=== PATIENT | male | born 1930 | race Caucasian/White ===

== ENCOUNTER 2017-03-14 19:40 | Inpatient (IN) ==
[2017-03-14] MEDS ORDERED: ONDANSETRON 4 MG/2 ML VIAL IV STA (20:00)
[2017-03-14] MEDS ORDERED: ASPIRIN 325 MG TABLET PO STA (20:00)
[2017-03-14] MEDS ORDERED: NITROGLYCERIN 2% OINT 1 INCH/GM PACK TOP STA (20:00)
[2017-03-14] MEDS ORDERED: METOPROLOL TARTRATE 25 MG TABLET PO STA (20:00)
[2017-03-14] MEDS ORDERED: MORPHINE 2 MG/1 ML SYRINGE IV STA (20:00)
[2017-03-14] MEDS ORDERED: METOPROLOL TARTRATE 5 MG/5 ML VIAL IV STA ×2 (20:07→20:23)
[2017-03-14] MEDS ORDERED: METOPROLOL TARTRATE 5 MG/5 ML VIAL IV ONE ×2 (20:07→20:22)
[2017-03-14] MEDS ORDERED: ONDANSETRON 4 MG/2 ML VIAL ONE (20:09)
[2017-03-14] MEDS ORDERED: MORPHINE 2 MG/1 ML SYRINGE ONE (20:09)
[2017-03-14] MEDS ORDERED: NITROGLYCERIN 2% OINT 1 INCH/GM PACK TOP ONE (20:10)
[2017-03-14 20:12] LABS: Basophils % 0.7 % (0.0-0.8); Eosinophils # 0.1 10*3/uL (0.0-0.87); Eosinophils % 1.5 % (0.00-10.9); Hematocrit 35.8 VOL% (42.0-52.0); Hemoglobin 11.7 GM/DL (14.0-18.0); Immature Granulocytes % 0.3 %; Immature Granulocytes Absolute 0.02 #; Lymphocytes # 0.8 10*3/uL (1.4-4.0); Lymphocytes % 13.1 % (21.2-54.2); Mean Corpuscular HGB Conc 32.7 GM/DL (32-36); Mean Corpuscular Hemoglobin 29 PG (27-34); Mean Corpuscular Volume 89.5 FL (87-102); Mean Platelet Volume 9.7 FL (9.6-12.0); Monocytes # 0.4 10*3/uL (0.11-0.8); Monocytes % 6.8 % (1.7-12.7); Neutrophils # 4.7 10*3/uL (1.4-7.4); Neutrophils % 77.6 % (38.7-73.9); Platelet Count 90 T/CUMM (130-400); Red Cell Distribution Width 15.2 % (9.3-17.3)
[2017-03-14 20:22] LABS: INR 1.1; PT Patient Result 11.5 SECS
--- NOTE | 2017-03-14 20:26 | XRay Report ---
Exam: XR chest 1V portable Date: 03/14/2017 8:00 PM Indication: Chest pain Comparison: 04/17/2016 Findings: Cardiomegaly with previous sternotomy. External cardiac leads and oxygen tubing are present. ASVD is present. Bibasilar atelectatic change present. No pneumothorax or effusions otherwise clearly demonstrated Impression: Cardiomegaly with previous sternotomy with bibasilar atelectatic change PROCEDURE INTERPRETED AT [facility] DEPARTMENT OF RADIOLOGY Final Report Signed by: Dr. Kevin Shaffer
--- NOTE | 2017-03-14 20:38 | Emergency Department Note ---
Eloina Watters Hilary, am scribing for, and in the presence of, Johnny Ramires MD 20:22. Keyla Watters Charles R, MD, personally performed the services described in this documentation, ascribed by Laney Duvall in my presence, and it is both accurate and complete . Arrival - Arrival Chief Complaint: Chest Pain Stated Complaint: chest pain ED Nursing Triage Note: C/O Chest pain that started yesterday- took a dose of nitro without relief. Chest pain started back at 1700 today- took a dose of nitro without any relief. 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 Yesterday when he had his chest pain he took a Nitro and it resolved his pain but today it did not. No other complaints or problems stated in the ED. Per Brennon pt has to be medically managed because he cannot have a heart cath, aspirin or blood thinners due to a bleeding risk Onset (ago): hour(s) Consistency: now resolved Severity: moderate Severity scale (1-10): 3 Allergies/Adverse Reactions: Allergies Allergy/AdvReac Type Severity Reaction Status Date / Time No Known Allergies Allergy Verified 08/30/16 13:10 Home Medications: Home Medications Medication Instructions Recorded Confirmed Type Amlodipine Besylate 2.5 mg PO BEDTIME 01/05/15 03/14/17 History Ferrous Sulfate [Ferrous Sulfate 325 mg PO DAILY 01/05/15 03/14/17 History Cap] Lisinopril 2.5 mg PO DAILY 04/17/16 03/14/17 History Memantine [Namenda] 10 mg PO BID W/MEALS 04/17/16 03/14/17 History Isosorbide Dinitrate [Isordil] 10 mg PO BID #60 tablet 04/19/16 03/14/17 Rx Nitroglycerin Sl Tab [Nitrostat] 0.4 mg SL Q5M PRN #25 tablet 04/19/16 03/14/17 Rx Propranolol Tab [Inderal Tab] 10 mg PO QID #120 tablet 04/19/16 03/14/17 Rx Acetaminophen Tab [Tylenol Tab] 1,000 mg PO Q6H 08/30/16 03/14/17 History Glimepiride 1 mg PO BID W/MEALS 03/14/17 03/14/17 History Omeprazole 20 mg PO DAILY 03/14/17 03/14/17 History Review of System - Review of System 12 point system: reviewed and no additional remarkable complaints except as stated - Review of System Constitutional: Absent: fever Respiratory: Absent: respiratory distress Cardiovascular: Present: chest pain Medical,Surgical,& Family Hx - Medical History Cardio: History of: Hypertension, NC Neurology: History of: Dementia No history of: Seizures HEENT: History of: Eye Problem Endocrine: History of: Diabetes Mellitus (NIDDM) Rheumatology: History of;: Rheumatoid Arthritis Respiratory: History of: Respiratory Problems (SOB ON EXTERTION) Genitourinary: History of: Prostate Problems (prostate ca-radiation) Gastrointestinal: History of: Liver Problems (CIRRHOSIS OF LIVER) Musculoskeletal: No history of: Amputation Hematology: History of: Anemia Reproductive: 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) Other: No history of: Anesthesia Reactions - Surgical History Cardiac Surgeries: Sugical HX of: Cardiac Catheterization (5 years ago with stent), Cardiac Surgery (cabg 1984) Thoracic Surgeries: Patient denies;: Lobectomy HEENT Surgeries: Surgical HX of: Eye Surgery (cataract) Patient denies: Tonsilectomy & Adenoidectomy Abdominal Surgeries: Surgical HX of: Abdominal Surgery, Appendectomy, Colonoscopy, EGD (with banding of esoph varices) - Family History Family History: Reports;: Family Hypertension (mom and dad) - Social History Smoking Status: Unknown if ever smoked Frequency of Alcohol Use: None Type of Drug Use: None Exam Vital Signs: Vital Signs Temperature 98.2 F 03/14/17 20:35 Pulse Rate 70 03/14/17 20:53 Respiratory Rate 18 03/14/17 20:53 Blood Pressure 128/81 03/14/17 20:53 O2 Sat by Pulse Oximetry 100 03/14/17 20:53 - General General appearance: alert, in no apparent distress - Head Head exam: Present: atraumatic, normocephalic - Eye Eye exam: Present: normal appearance, PERRL, EOMI - ENT ENT exam: Present: mucous membranes moist, TM's normal bilaterally. Absent: mucous membranes dry - Neck Neck exam: Present: full ROM, trachea midline. Absent: tenderness - Chest Chest inspection: Present: symmetric chest wall rise. Absent: tenderness - Respiratory Respiratory exam: Present: normal lung sounds bilaterally. Absent: respiratory distress - Cardiovascular Cardiovascular exam: Present: normal rhythm, tachycardia, normal heart sounds. Absent: murmur, rubs, gallop - Abdominal Exam Abdominal exam: Present: soft, normal bowel sounds. Absent: distention, tenderness - Extremities Exam Extremities exam: Present: full ROM, pedal edema (+1 pedal edema). Absent: tenderness - Back Exam Back exam: Present: full ROM. Absent: tenderness - Neurological Exam Neurological exam: Present: alert, oriented X3, CN II-XII intact. Absent: motor sensory deficit - Psychiatric Psychiatric exam: Present: normal affect, normal mood - Skin Skin exam: Present: warm, dry, intact, normal color, diaphoresis. Absent: rash Course - Consultations Consultation #1: Spoke to Dr. Aranad send him the EKG he states is 1-lead with ST elevation in aVR. No need for the Software Testing Specialist. Patient also cannot go the Software Testing Specialist because he cannot have blood thinners aspirin or any other blood thinning products because it will cause him to have life-threatening GI bleed patient will be medically managed Time: 20:35 Consultation #2: Dr. Howard will admit patient Time: 20:47 Results - Labs CBC & BMP: 03/14/17 19:56 03/14/17 19:56 Lab Results: I have reviewed the patients labs Labs: Laboratory Tests 03/14/17 19:56 INR 1.1 PT Patient/Control Mix 11.5 Laboratory Tests 03/14/17 19:56 WBC 6.0 RBC 4.00 Hgb 11.7 L Hct 35.8 L Plt Count 90 L Neut % (Auto) 77.6 H Lymph % (Auto) 13.1 L Lymph # (Auto) 0.8 L Laboratory Tests 03/14/17 03/14/17 19:56 19:56 Glucose 241 H AST 50 H Troponin I 0.275 H Total Protein 8.7 H Globulin 4.8 H Albumin/Globulin Ratio 0.8 L Lipase 511.0 H - Diagnostic Findings Procedure: Chest x-ray: report reviewed by me (Cardiomegaly with previous sternotomy with bibasilar atelectatic change) Critical Care Time Critical Care Time: Yes Total Critical Care Time: 60 Disposition Clinical Impression: Chest pain, Unstable angina, Elevated troponin, History of upper gastrointestinal bleeding, Hypertensive urgency Case discussed with: patient, patient's family Disposition: Still a Patient Condition: Guarded Time of Disposition: 20:47
[2017-03-14 20:39] LABS: Albumin 3.9 G/DL (3.4-5.0); Bilirubin,Total 0.7 MG/DL (0.2-1.0); Calcium 9.2 MG/DL (8.5-10.1); Magnesium 2.2 MG/DL (1.8-2.4); Osmolality,Calculated 281.8 MOS/KG (273-304); Potassium 4.2 MMOL/L (3.5-5.1); Total Protein 8.7 G/DL (6.4-8.3)
[2017-03-14] MEDS ORDERED: ONDANSETRON 4 MG/2 ML VIAL IV PRN (22:33)
[2017-03-14] MEDS ORDERED: MORPHINE 2 MG/1 ML SYRINGE IV PRN (22:33)
[2017-03-14] MEDS ORDERED: NITROGLYCERIN SL 0.4 MG TABLET SL PRN (22:33)
[2017-03-14] MEDS ORDERED: DEXTROSE 50% 25 GM/50 ML VIAL IV PRN (22:33)
[2017-03-14] MEDS ORDERED: GLUCAGON 1 MG VIAL IM PRN (22:33)
[2017-03-14] MEDS ORDERED: MAGNESIUM SULF RIDER 2 GM in PREMIX 1 EACH IV PRN (22:33)
[2017-03-14] MEDS ORDERED: MAGNESIUM SULF RIDER 4 GM in PREMIX 1 EACH IV PRN (22:33)
[2017-03-14] MEDS: ACETAMINOPHEN 500 MG TABLET PO SCH (23:22)
[2017-03-14] MEDS: SODIUM CHLORIDE 0.9% 1,000 ML IV SCH (23:23)
[2017-03-14 23:45] LABS: CKMB % 6.8 %
[2017-03-14 23:48] LABS: Troponin I Only 2.54 NG/ML (0.00-0.045)
[2017-03-15] MEDS: NITROGLYCERIN 2% OINT 1 INCH/GM PACK TOP SCH ×4 (00:31→17:41)
[2017-03-15 02:57] LABS: Albumin 3.3 G/DL (3.4-5.0); Bilirubin,Total 0.5 MG/DL (0.2-1.0); Calcium 8.5 MG/DL (8.5-10.1); Magnesium 2.1 MG/DL (1.8-2.4); Osmolality,Calculated 284.3 MOS/KG (273-304); Potassium 4.4 MMOL/L (3.5-5.1); Risk Ratio 5.53; Total Protein 7.4 G/DL (6.4-8.3); VLDL CHOLESTEROL 22.2 MG/DL
[2017-03-15 03:00] LABS: Basophils % 0.7 % (0.0-0.8); Eosinophils # 0.1 10*3/uL (0.0-0.87); Eosinophils % 1.6 % (0.00-10.9); Hematocrit 30.6 VOL% (42.0-52.0); Hemoglobin 9.8 GM/DL (14.0-18.0); Immature Granulocytes % 0.5 %; Immature Granulocytes Absolute 0.02 #; Lymphocytes % 22.4 % (21.2-54.2); Mean Corpuscular Hemoglobin 29 PG (27-34); Monocytes # 0.4 10*3/uL (0.11-0.8); Monocytes % 8.2 % (1.7-12.7); Neutrophils # 2.9 10*3/uL (1.4-7.4); Neutrophils % 66.6 % (38.7-73.9); Platelet Count 78 T/CUMM (130-400); Red Blood Count 3.44 MC/CUMM (3.8-5.5); Red Cell Distribution Width 15.2 % (9.3-17.3); White Blood Count 4.3 T/CUMM (4-12)
[2017-03-15] MEDS: ACETAMINOPHEN 500 MG TABLET PO SCH ×4 (04:38→23:40)
--- NOTE | 2017-03-15 04:45 | EKG Report ---
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
--- NOTE | 2017-03-15 04:45 | EKG Report ---
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
--- NOTE | 2017-03-15 07:04 | XRay Report ---
Exam: XR chest 1V portable Date: 03/15/2017 4:00 AM Indication: Shortness of breath Comparison: 03/14/2017 Technical: AP portable Findings: Cardiomegaly present with previous sternotomy. External cardiac leads oxygen tubing are present. The mediastinum is unremarkable. No pneumothorax. Bony structures reveal no acute findings. ASVD is present Impression: 1. Cardiomegaly with previous sternotomy 2. Bibasilar atelectatic change without obvious consolidations or effusions PROCEDURE INTERPRETED AT [facility] DEPARTMENT OF RADIOLOGY Final Report Signed by: Dr. Kevin Shaffer
[2017-03-15 07:12] LABS: CKMB % 8.4 %
[2017-03-15 07:14] LABS: Troponin I Only 2.79 NG/ML (0.00-0.045)
--- NOTE | 2017-03-15 08:03 | EKG Report ---
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
--- NOTE | 2017-03-15 08:27 | Cardiology History & Physical ---
<Sonia Abdi E - Last Filed: 03/15/17 10:46> Assessment and Plan - Time spent with patient Time spent with patient: Greater than 30 minutes History of Present Illness Chief complaint: chest pain, NSTEMI History of present illness: [employer] HELPER: DR. WILLETT GASTROENETEROLOGIST: DR. KEITH PCP: DR. ALPA GARAY Mr. Ordaz, 87WM, followed by Dr. Willett though he has not followed-up in clinic in several years (I can locate no records). Risk factors include: advanced age, known coronary artery disease S/P CABG many years ago (date and specifics unknown), hypertension, dyslipidemia, sedentary lifestyle. History of bleeding esophageal varices, cirrhosis of the liver, hepatitis C, rectal bleeding with prostate cancer (prostate cancer has now been treated), hematuria. Patient presented to the emergency department at [facility] March 14, 2017 with complaints of mid and left substernal chest discomfort he describes as squeezing sensation. There is no radiation but was associated with mild diaphoresis and shortness of breath. Discomfort had been occurring intermittently for 3 days. Initially, chest discomfort was occurring primarily with exertion however began to occur while at rest last evening. He did use nitroglycerin on and this possibly relieved the discomfort ( unsure). Last evening, the chest discomfort lasted approximately 1 hour and was associated with diaphoresis and mild shortness of breath. IV morphine relieved the discomfort on arrival to the ER. Unable to rate discomfort on a scale of 1-10. He is currently chest pain-free. He has been diagnosed with NSTEMI. In the past, Dr. Willett has treated the patient medically due to the severity of his bleeding esophageal varices, rectal bleeding with prostate cancer and hematuria. Patient has not had vomiting of blood or passing blood in his stool in greater than 18 months. This morning, and has peaked at 3.333 but is trending down. Initial EKG revealed ST depression which has now resolved this morning. He has been treated with aspirin 325 mg ER, nitrates, JOHN inhibitor and beta blockade ( Metoprolol and Propanolol). Avoiding lipid-lowering agents due to history of cirrhosis. Chronic anemia and this morning his hemoglobin hematocrit is 9.8 and 30.6 respectively. Platelet count is 78. Lipase is elevated at 511. Will order dedicated liver function studies. I will keep patient NPO. Echocardiogram has been ordered. Will further discuss with Dr. Gunn and await additional recommendations. Last cardiac catheterization was performed January 26, 2009 with the following noted: 1. RCA graft was patent but anastamosis site had 99% narrowing. Required PTCA. 2. GILL to LAD patent 3. Moderate distal LAD disease to SVG to OM. 4. RI patent 5. OM1 had 90% ostial narrowing. Required PTCA 6. Ostial Cx required PTCA 7. EF 50% ASSESSMENT/PLAN: 1. NSTEMI - Has had an ECASA. Avoiding Lovenox due to anemia and history of bleeding. Continue with nitrates, betablockade. 2. KNOWN CAD S/P CABG - see above. 3. HYPERTENSION - usually well-controlled. Adjust medications accordingly during hospital stay 4. DYSLIPIDEMIA - LDL 127. Avoiding statins due to cirrhosis 5. ESOPHAGEAL VARICIES - consulting Dr. Keith 6. CIRRHOSIS OF LIVER - labs pending 7. THROMBOCYTOPENIA - continue to follow labs. 8. ANEMIA - checking stool for occult blood, GI consulted. 9. ELEVATED LIPASE - adding amylase, LFTs 10. ADVANCED AGE - continue current plan of care. 11. PROSTATE CANCER WITH HISTORY OF RECTAL BLEEDING - reports he takes medications which changes the color of stool and therefor we will check stool for OB. 12. HEPATITIS C, history of - continue current plan of FDC Medications Medication Instructions Recorded Confirmed Type Amlodipine Besylate 2.5 mg PO BEDTIME 01/05/15 03/14/17 History Ferrous Sulfate [Ferrous Sulfate 325 mg PO DAILY 01/05/15 03/14/17 History Cap] Lisinopril 2.5 mg PO DAILY 04/17/16 03/14/17 History Memantine [Namenda] 10 mg PO BID W/MEALS 04/17/16 03/14/17 History Isosorbide Dinitrate [Isordil] 10 mg PO BID #60 tablet 04/19/16 03/14/17 Rx Nitroglycerin Sl Tab [Nitrostat] 0.4 mg SL Q5M PRN #25 tablet 04/19/16 03/14/17 Rx Propranolol Tab [Inderal Tab] 10 mg PO QID #120 tablet 04/19/16 03/14/17 Rx Acetaminophen Tab [Tylenol Tab] 1,000 mg PO Q6H 08/30/16 03/14/17 History Glimepiride 1 mg PO BID W/MEALS 03/14/17 03/14/17 History Omeprazole 20 mg PO DAILY 03/14/17 03/14/17 History Allergies Allergy/AdvReac Type Severity Reaction Status Date / Time No Known Allergies Allergy Verified 08/30/16 13:10 Review of systems: REVIEW OF SYSTEMS: See HPI - Constitutional Constitutional: Present: Fatigue. Absent: syncope, anorexia, night sweats - EENT Eyes: Absent: blurry vision, loss of vision, diplopia Ears: Absent: decreased hearing, ear pain, ear discharge - Cardiovascular Cardiovascular: Present: chest pain with exertion and at rest, dyspnea on exertion, palpitations. Absent: chest pain with deep breath, claudication - Respiratory Respiratory: Present: AGUSTIN, cough. Absent: wheezing, hemoptysis, change in phlegm color - Gastrointestinal Gastrointestinal: Present: constipation. Absent: abdominal pain, hematemesis , hematochezia, melena, change in bowel habits, nausea - Genitourinary Genitourinary: Absent: difficulty urinating, dysuria, urinary hesitancy, flank pain - Musculoskeletal Musculoskeletal: Present: back pain Absent: joint swelling, muscle cramps, muscle weakness - Neurological Neurological: Present: Poor gait with history of falls in the past. None within the past 3 months. Absent: dizziness, hemiparesis - Psychiatric Psychiatric: Absent: anxiety, depression, difficulty concentrating - Endocrine Endocrine: Present: fatigue. Absent: cold intolerance, heat intolerance, polyuria, polyphagia, polydipsia - Hematologic/Lymphatic Hematologic/Lymphatic: Present: easy bruising, easy bleeding. -Integumentary Integumentary: Absent: lesions, rashes, skin breakdown Medical,Surgical,& Family Hx - Medical History Cardio: History of: CAD, Hypertension, MT, Cardiovascular Problems No history of: Cardiac Dysrhythmia Neurology: History of: Dementia No history of: Seizures HEENT: History of: Eye Problem Endocrine: History of: Diabetes Mellitus (NIDDM) Rheumatology: History of;: Rheumatoid Arthritis Respiratory: History of: Respiratory Problems (SOB ON EXTERTION) Genitourinary: History of: Prostate Problems (prostate ca-radiation) Gastrointestinal: History of: Hepatitis, Liver Problems (CIRRHOSIS OF LIVER) Musculoskeletal: No history of: Amputation Hematology: History of: Anemia Reproductive: 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) Other: No history of: Anesthesia Reactions - Surgical History Cardiac Surgeries: Sugical HX of: Cardiac Catheterization (5 years ago with stent), Cardiac Surgery (cabg 1984) Thoracic Surgeries: Patient denies;: Lobectomy HEENT Surgeries: Surgical HX of: Eye Surgery (cataract) Patient denies: Tonsilectomy & Adenoidectomy Abdominal Surgeries: Surgical HX of: Abdominal Surgery, Appendectomy, Colonoscopy, EGD (with banding of esoph varices) - Family History Family History: Reports;: Family Hypertension (mom and dad) - Social History Smoking Status: Former smoker Frequency of Alcohol Use: None Type of Drug Use: None Cardiology Physical Exam - Constitutional Vitals: Vital Signs Temp Pulse Resp BP Pulse Ox 97.8 F 73 17 128/69 100 03/15/17 04:00 03/15/17 06:00 03/15/17 06:00 03/15/17 06:00 03/15/17 06:00 Intake and Output 03/14/17 03/15/17 03/15/17 23:59 07:59 15:59 Intake Total 0 / 0 Balance 0 / 0 Intake: Oral 0 / 0 Other: Voiding Method Toilet # Voids 0 Weight 92.986 kg 92.986 kg Patient Weight 03/15/17 23:59 Weight 92.986 kg Exam: General: [Appears well with no apparent distress.] [Pleasant and cooperative. ] [Appears comfortable.] HEENT: [PERRL, normocephalic, atraumatic. Mucous membranes moist. No jaundice noted. Conjunctiva moist and clear, sclerae anicteric] Neck: No JVD/HJR, no thyromegaly or lymphadenopathy noted. No carotid bruit appreciated Cardiac: [Regular rate and rhythm.] [No obvious murmur rub or gallop.] Lungs: [Clear to auscultation without accessory muscle use to assist the respiratory pattern.] Oxygen in use via nasal cannula Abdomen: Soft, bowel sounds normoactive. Nontender and nondistended. No abdominal bruit or thrill noted. No masses noted. Musculoskeletal: No fluid collection. Decreased range of motion is noted. Extremities: No clubbing, cyanosis noted. [ No edema noted.] Upper extremity pulses 2+. Lower extremity pulses 2+. Capillary refill less than 3 seconds. Skin: No unusual lesions or rashes. No skin breakdown appreciated. Neuro: Awake, alert and oriented 3. Moves all extremities well without hemiparesis or paralysis. No essential tremor is appreciated. Result/EKG - Labs CBC & BMP: 03/15/17 02:21 03/15/17 02:21 Lab Results: I have reviewed the past 24 hour labs Labs: Laboratory Results - last 24 hr 03/14/17 03/14/17 03/14/17 19:56 19:56 19:56 WBC RBC Hgb Hct MCV MCH MCHC RDW Plt Count MPV Neut % (Auto) Lymph % (Auto) [place] % (Auto) Eos % (Auto) Baso % (Auto) Neut # (Auto) Lymph # (Auto) [place] # (Auto) Eos # (Auto) Baso # (Auto) Immature Gran % Nucleated RBC % Immature Gran # Nucleated RBCs # INR 1.1 PT Patient/Control Mix 11.5 Sodium 137 Potassium 4.2 Chloride 103 Carbon Dioxide 25 Anion Gap 13.2 BUN 16 Creatinine 1.30 GFR Calculation 62 BUN/Creatinine Ratio 12.00 Glucose 241 H POC Glucose Calculated Osmolality 281.8 Calcium 9.2 Magnesium 2.2 Total Bilirubin 0.70 AST 50 H ALT 41 Alkaline Phosphatase 115 Total Creatine Kinase CK-MB (CK-2) CK and CKMB Interp Troponin I B-Natriuretic Peptide 241 H Total Protein 8.7 H Albumin 3.9 Globulin 4.8 H Albumin/Globulin Ratio 0.8 L Triglycerides Cholesterol LDL Cholesterol VLDL Cholesterol HDL Cholesterol Heart Disease Risk Ratio Lipase 511.0 H 03/14/17 03/14/17 03/14/17 19:56 19:56 23:00 WBC 6.0 RBC 4.00 Hgb 11.7 L Hct 35.8 L MCV 89.5 MCH 29 MCHC 32.7 RDW 15.2 Plt Count 90 L MPV 9.7 Neut % (Auto) 77.6 H Lymph % (Auto) 13.1 L [place] % (Auto) 6.8 Eos % (Auto) 1.5 Baso % (Auto) 0.7 Neut # (Auto) 4.7 Lymph # (Auto) 0.8 L [place] # (Auto) 0.4 Eos # (Auto) 0.1 Baso # (Auto) 0.0 Immature Gran % 0.3 Nucleated RBC % 0.0 Immature Gran # 0.02 Nucleated RBCs # 0.00 INR PT Patient/Control Mix Sodium Potassium Chloride Carbon Dioxide Anion Gap BUN Creatinine GFR Calculation BUN/Creatinine Ratio Glucose POC Glucose Calculated Osmolality Calcium Magnesium Total Bilirubin AST ALT Alkaline Phosphatase Total Creatine Kinase 122 CK-MB (CK-2) 8.3 H CK and CKMB Interp 6.8 Troponin I 0.275 H 2.540 H D B-Natriuretic Peptide Total Protein Albumin Globulin Albumin/Globulin Ratio Triglycerides Cholesterol LDL Cholesterol VLDL Cholesterol HDL Cholesterol Heart Disease Risk Ratio Lipase 03/15/17 03/15/17 03/15/17 00:31 02:21 02:21 WBC 4.3 RBC 3.44 L Hgb 9.8 L Hct 30.6 L MCV 89.0 MCH 29 MCHC 32.0 RDW 15.2 Plt Count 78 L MPV 10.0 Neut % (Auto) 66.6 Lymph % (Auto) 22.4 [place] % (Auto) 8.2 Eos % (Auto) 1.6 Baso % (Auto) 0.7 Neut # (Auto) 2.9 Lymph # (Auto) 1.0 L [place] # (Auto) 0.4 Eos # (Auto) 0.1 Baso # (Auto) 0.0 Immature Gran % 0.5 Nucleated RBC % 0.0 Immature Gran # 0.02 Nucleated RBCs # 0.00 INR PT Patient/Control Mix Sodium Potassium Chloride Carbon Dioxide Anion Gap BUN Creatinine GFR Calculation BUN/Creatinine Ratio Glucose POC Glucose 156 H Calculated Osmolality Calcium Magnesium Total Bilirubin AST ALT Alkaline Phosphatase Total Creatine Kinase CK-MB (CK-2) CK and CKMB Interp Troponin I 3.330 H D B-Natriuretic Peptide Total Protein Albumin Globulin Albumin/Globulin Ratio Triglycerides Cholesterol LDL Cholesterol VLDL Cholesterol HDL Cholesterol Heart Disease Risk Ratio Lipase 03/15/17 03/15/17 03/15/17 02:21 02:21 06:24 WBC RBC Hgb Hct MCV MCH MCHC RDW Plt Count MPV Neut % (Auto) Lymph % (Auto) [place] % (Auto) Eos % (Auto) Baso % (Auto) Neut # (Auto) Lymph # (Auto) [place] # (Auto) Eos # (Auto) Baso # (Auto) Immature Gran % Nucleated RBC % Immature Gran # Nucleated RBCs # INR PT Patient/Control Mix Sodium 141 Potassium 4.4 Chloride 107 Carbon Dioxide 27 Anion Gap 11.4 BUN 14 Creatinine 1.20 GFR Calculation 68 BUN/Creatinine Ratio 11.00 Glucose 152 H POC Glucose Calculated Osmolality 284.3 Calcium 8.5 Magnesium 2.1 Total Bilirubin 0.50 AST 45 H ALT 32 Alkaline Phosphatase 84 Total Creatine Kinase 107 CK-MB (CK-2) 9.0 H CK and CKMB Interp 8.4 Troponin I 2.790 H B-Natriuretic Peptide 357 H Total Protein 7.4 Albumin 3.3 L Globulin 4.1 H Albumin/Globulin Ratio 0.8 L Triglycerides 111 Cholesterol 188 LDL Cholesterol 127.0 VLDL Cholesterol 22.2 HDL Cholesterol 34 L Heart Disease Risk Ratio 5.53 Lipase - Diagnostic Findings Procedure: Chest x-ray: report reviewed by me - EKG EKG results: interpreted by ct EKG shows: sinus rhythm Quality Measures - VTE Contraindication to Pharmacological VTE Prophylaxis: High Risk of Bleeding <Roberto Gunn - Last Filed: 03/15/17 15:30> History of Present Illness History of present illness: Mr. Ordaz is a 87 year old male Cardiology Physical Exam - Constitutional Vitals: Vital Signs Temp Pulse Resp BP Pulse Ox 97.8 F 69 16 182/99 100 03/15/17 04:00 03/15/17 15:05 03/15/17 15:05 03/15/17 15:05 03/15/17 15:05 Intake and Output 03/14/17 03/15/17 03/15/17 23:59 07:59 15:59 Intake Total 0 / 0 1240 / 1240 Balance 0 / 0 1240 / 1240 Intake: IV 1000 / 1000 Ns 1,000 ml @ 65 mls/hr 1000 / 1000 IV .[id number] [facility] Rx#: [id number] Oral 0 / 0 240 / 240 Other: Voiding Method Toilet Toilet # Voids 0 1 Weight 92.986 kg 92.986 kg Patient Weight 03/15/17 23:59 Weight 92.986 kg Result/EKG - Labs CBC & BMP: 03/15/17 02:21 03/15/17 02:21 Labs: Laboratory Results - last 24 hr 03/14/17 03/14/17 03/14/17 19:56 19:56 19:56 WBC RBC Hgb Hct MCV MCH MCHC RDW Plt Count MPV Neut % (Auto) Lymph % (Auto) [place] % (Auto) Eos % (Auto) Baso % (Auto) Neut # (Auto) Lymph # (Auto) [place] # (Auto) Eos # (Auto) Baso # (Auto) Immature Gran % Nucleated RBC % Immature Gran # Nucleated RBCs # INR 1.1 PT Patient/Control Mix 11.5 Sodium 137 Potassium 4.2 Chloride 103 Carbon Dioxide 25 Anion Gap 13.2 BUN 16 Creatinine 1.30 GFR Calculation 62 BUN/Creatinine Ratio 12.00 Glucose 241 H POC Glucose Calculated Osmolality 281.8 Calcium 9.2 Magnesium 2.2 Total Bilirubin 0.70 Direct Bilirubin Indirect Bilirubin AST 50 H ALT 41 Alkaline Phosphatase 115 Total Creatine Kinase CK-MB (CK-2) CK and CKMB Interp Troponin I B-Natriuretic Peptide 241 H Total Protein 8.7 H Albumin 3.9 Globulin 4.8 H Albumin/Globulin Ratio 0.8 L Triglycerides Cholesterol LDL Cholesterol VLDL Cholesterol HDL Cholesterol Heart Disease Risk Ratio Amylase Lipase 511.0 H 03/14/17 03/14/17 03/14/17 19:56 19:56 23:00 WBC 6.0 RBC 4.00 Hgb 11.7 L Hct 35.8 L MCV 89.5 MCH 29 MCHC 32.7 RDW 15.2 Plt Count 90 L MPV 9.7 Neut % (Auto) 77.6 H Lymph % (Auto) 13.1 L [place] % (Auto) 6.8 Eos % (Auto) 1.5 Baso % (Auto) 0.7 Neut # (Auto) 4.7 Lymph # (Auto) 0.8 L [place] # (Auto) 0.4 Eos # (Auto) 0.1 Baso # (Auto) 0.0 Immature Gran % 0.3 Nucleated RBC % 0.0 Immature Gran # 0.02 Nucleated RBCs # 0.00 INR PT Patient/Control Mix Sodium Potassium Chloride Carbon Dioxide Anion Gap BUN Creatinine GFR Calculation BUN/Creatinine Ratio Glucose POC Glucose Calculated Osmolality Calcium Magnesium Total Bilirubin Direct Bilirubin Indirect Bilirubin AST ALT Alkaline Phosphatase Total Creatine Kinase 122 CK-MB (CK-2) 8.3 H CK and CKMB Interp 6.8 Troponin I 0.275 H 2.540 H D B-Natriuretic Peptide Total Protein Albumin Globulin Albumin/Globulin Ratio Triglycerides Cholesterol LDL Cholesterol VLDL Cholesterol HDL Cholesterol Heart Disease Risk Ratio Amylase Lipase 03/15/17 03/15/17 03/15/17 00:31 02:21 02:21 WBC 4.3 RBC 3.44 L Hgb 9.8 L Hct 30.6 L MCV 89.0 MCH 29 MCHC 32.0 RDW 15.2 Plt Count 78 L MPV 10.0 Neut % (Auto) 66.6 Lymph % (Auto) 22.4 [place] % (Auto) 8.2 Eos % (Auto) 1.6 Baso % (Auto) 0.7 Neut # (Auto) 2.9 Lymph # (Auto) 1.0 L [place] # (Auto) 0.4 Eos # (Auto) 0.1 Baso # (Auto) 0.0 Immature Gran % 0.5 Nucleated RBC % 0.0 Immature Gran # 0.02 Nucleated RBCs # 0.00 INR PT Patient/Control Mix Sodium Potassium Chloride Carbon Dioxide Anion Gap BUN Creatinine GFR Calculation BUN/Creatinine Ratio Glucose POC Glucose 156 H Calculated Osmolality Calcium Magnesium Total Bilirubin Direct Bilirubin Indirect Bilirubin AST ALT Alkaline Phosphatase Total Creatine Kinase CK-MB (CK-2) CK and CKMB Interp Troponin I 3.330 H D B-Natriuretic Peptide Total Protein Albumin Globulin Albumin/Globulin Ratio Triglycerides Cholesterol LDL Cholesterol VLDL Cholesterol HDL Cholesterol Heart Disease Risk Ratio Amylase Lipase 03/15/17 03/15/17 03/15/17 02:21 02:21 06:24 WBC RBC Hgb Hct MCV MCH MCHC RDW Plt Count MPV Neut % (Auto) Lymph % (Auto) [place] % (Auto) Eos % (Auto) Baso % (Auto) Neut # (Auto) Lymph # (Auto) [place] # (Auto) Eos # (Auto) Baso # (Auto) Immature Gran % Nucleated RBC % Immature Gran # Nucleated RBCs # INR PT Patient/Control Mix Sodium 141 Potassium 4.4 Chloride 107 Carbon Dioxide 27 Anion Gap 11.4 BUN 14 Creatinine 1.20 GFR Calculation 68 BUN/Creatinine Ratio 11.00 Glucose 152 H POC Glucose Calculated Osmolality 284.3 Calcium 8.5 Magnesium 2.1 Total Bilirubin 0.50 Direct Bilirubin Indirect Bilirubin AST 45 H ALT 32 Alkaline Phosphatase 84 Total Creatine Kinase 107 CK-MB (CK-2) 9.0 H CK and CKMB Interp 8.4 Troponin I 2.790 H B-Natriuretic Peptide 357 H Total Protein 7.4 Albumin 3.3 L Globulin 4.1 H Albumin/Globulin Ratio 0.8 L Triglycerides 111 Cholesterol 188 LDL Cholesterol 127.0 VLDL Cholesterol 22.2 HDL Cholesterol 34 L Heart Disease Risk Ratio 5.53 Amylase Lipase 03/15/17 03/15/17 03/15/17 06:24 06:24 08:25 WBC RBC Hgb Hct MCV MCH MCHC RDW Plt Count MPV Neut % (Auto) Lymph % (Auto) [place] % (Auto) Eos % (Auto) Baso % (Auto) Neut # (Auto) Lymph # (Auto) [place] # (Auto) Eos # (Auto) Baso # (Auto) Immature Gran % Nucleated RBC % Immature Gran # Nucleated RBCs # INR PT Patient/Control Mix Sodium Potassium Chloride Carbon Dioxide Anion Gap BUN Creatinine GFR Calculation BUN/Creatinine Ratio Glucose POC Glucose 160 H Calculated Osmolality Calcium Magnesium Total Bilirubin 0.60 Direct Bilirubin 0.10 Indirect Bilirubin 0.5 AST 42 H ALT 33 Alkaline Phosphatase 77 Total Creatine Kinase CK-MB (CK-2) CK and CKMB Interp Troponin I B-Natriuretic Peptide Total Protein 7.4 Albumin 3.3 L Globulin Albumin/Globulin Ratio Triglycerides Cholesterol LDL Cholesterol VLDL Cholesterol HDL Cholesterol Heart Disease Risk Ratio Amylase 78 Lipase 03/15/17 03/15/17 11:44 14:33 WBC RBC Hgb Hct MCV MCH MCHC RDW Plt Count MPV Neut % (Auto) Lymph % (Auto) [place] % (Auto) Eos % (Auto) Baso % (Auto) Neut # (Auto) Lymph # (Auto) [place] # (Auto) Eos # (Auto) Baso # (Auto) Immature Gran % Nucleated RBC % Immature Gran # Nucleated RBCs # INR PT Patient/Control Mix Sodium Potassium Chloride Carbon Dioxide Anion Gap BUN Creatinine GFR Calculation BUN/Creatinine Ratio Glucose POC Glucose 178 H Calculated Osmolality Calcium Magnesium Total Bilirubin Direct Bilirubin Indirect Bilirubin AST ALT Alkaline Phosphatase Total Creatine Kinase 89 CK-MB (CK-2) 6.1 H CK and CKMB Interp 6.9 Troponin I 1.600 H D B-Natriuretic Peptide Total Protein Albumin Globulin Albumin/Globulin Ratio Triglycerides Cholesterol LDL Cholesterol VLDL Cholesterol HDL Cholesterol Heart Disease Risk Ratio Amylase Lipase
[2017-03-15] MEDS: FERROUS SULFATE 325 MG TABLET PO SCH (08:58)
[2017-03-15] MEDS: PANTOPRAZOLE 40 MG TABLET PO SCH (08:58)
[2017-03-15] MEDS: GLIMEPIRIDE 2 MG TABLET PO SCH ×2 (08:58→17:40)
[2017-03-15] MEDS: METOPROLOL TARTRATE 50 MG TABLET PO SCH ×2 (08:59→20:57)
[2017-03-15] MEDS: PROPRANOLOL 10 MG TABLET PO SCH ×4 (08:59→20:57)
[2017-03-15] MEDS: MEMANTINE 10 MG TABLET PO SCH ×2 (08:59→17:39)
[2017-03-15] MEDS ORDERED: NON-FORMULARY MEDICATION (Omeprazole [Omeprazole] 20 MG) PO SCH (09:00)
[2017-03-15] MEDS: INSULIN REGULAR 100 UNIT/ML SUBCUT SCH ×4 (09:00→20:57)
[2017-03-15] MEDS: LISINOPRIL 5 MG TABLET PO SCH (09:00)
[2017-03-15] MEDS ORDERED: ISOSORBIDE DINITRATE 10 MG TABLET PO SCH (09:00)
--- NOTE | 2017-03-15 10:06 | Event Note ---
Brief admission note: 1. 87-year-old with history of multiple upper and lower GI bleeds over many years status post CABG in 1984 with all vein grafts open [place] [address] Willett stented his critical distal right coronary artery through the vein graft, and mid circumflex/proximal OM. He presented about 7 months ago with acute coronary syndrome but was treated medically because of his history of significant esophageal varices (banded July 2014, no varices were present August 2016), now presents with recurrent prolonged chest pain over the last 24-48 hours who ruled out for non-STEMI and had high risk features of ST depression of greater than 2 mm, which is now resolved as has his angina. 2. Normal ejection fraction with EF of at least 65% on echo today. 3. Consult Dr. Keith for clearance for catheterization to ensure he can take baby aspirin and the least a short course of Plavix, as he likely need coronary stenting if heart catheterization were performed. 4. Status post esophageal dilation August 2016 5. He ate eggs, grits, and toast (no meat) at 9 AM; will make n.p.o.
--- NOTE | 2017-03-15 10:50 | Gastrointestinal Consult Note ---
Assessment and Plan (1) Chest pain Status: Acute Assessment and plan: 03/15-2 day history of chest pain with prior history of CAD and CABG in 2008. Also with history of cirrhosis and esophageal varices with banding, last banded in July 2014. For heart catheterization later this afternoon with GI consult to precede this with EGD in the event stents are placed and anticoagulation post-cath required. Patient did eat breakfast at 8:30 AM therefore this will have to be postponed to later this afternoon. Case has been discussed with Dr. Keith by Dr. Gunn. Plan an addendum to followed by Dr. Keith. Current Visit: Yes History of Present Illness Chief complaint: Chest pain History of present illness: Mr. Ordaz is a 87 year old male who presented to the emergency room with 2 day history of chest pain. Patient is a fair historian however is at bedside and assist in history. Information also obtained from chart review. Patient had a sudden onset 2 days ago of chest pain that was not precipitated by any known factors. The pain quickly resolved on its own however returned on yesterday. Patient states that he does have a history of some angina type pain in the past and takes nitroglycerin for this however his pain was not relieved on yesterday from the nitroglycerin. He reported to the emergency room for further evaluation at that time. He states that he did receive relief after taking morphine after onset of pain. He also reports some nausea without vomiting. Denies any radiation of pain, palpitations, or dizziness associated with this at that time. Patient has been consulted by cardiology and is for tentative heart catheterization later on this evening however request has been made to proceed this with EGD due to patient's prior history of esophageal varices, in the event stents were placed and patient has to be placed on long- term anticoagulation. Patient does have a history of cirrhosis and history of esophageal variceal bleeding with multiple band ligation in the past with his last known EGD in August 2016 with findings of distal esophageal stricture with dilation, small hiatal hernia, and mild portal gastropathy. Last known variceal banding was in 2013. Patient states that he does have some dysphagia symptoms at times to solids and pills however this is not consistent. He denies any reports of melena or hematochezia. He does not complain of increased GERD symptoms. Denies any odynophagia. Denies any recent weight loss. Home Medications Medication Instructions Recorded Confirmed Type Amlodipine Besylate 2.5 mg PO BEDTIME 01/05/15 03/14/17 History Ferrous Sulfate [Ferrous Sulfate 325 mg PO DAILY 01/05/15 03/14/17 History Cap] Lisinopril 2.5 mg PO DAILY 04/17/16 03/14/17 History Memantine [Namenda] 10 mg PO BID W/MEALS 04/17/16 03/14/17 History Isosorbide Dinitrate [Isordil] 10 mg PO BID #60 tablet 04/19/16 03/14/17 Rx Nitroglycerin Sl Tab [Nitrostat] 0.4 mg SL Q5M PRN #25 tablet 04/19/16 03/14/17 Rx Propranolol Tab [Inderal Tab] 10 mg PO QID #120 tablet 04/19/16 03/14/17 Rx Acetaminophen Tab [Tylenol Tab] 1,000 mg PO Q6H 08/30/16 03/14/17 History Glimepiride 1 mg PO BID W/MEALS 03/14/17 03/14/17 History Omeprazole 20 mg PO DAILY 03/14/17 03/14/17 History Allergies Allergy/AdvReac Type Severity Reaction Status Date / Time No Known Allergies Allergy Verified 08/30/16 13:10 Medical,Surgical,& Family Hx - Medical History Cardio: History of: Hypertension, [place] Neurology: History of: Dementia No history of: Seizures HEENT: History of: Eye Problem Endocrine: History of: Diabetes Mellitus (NIDDM) Rheumatology: History of;: Rheumatoid Arthritis Respiratory: History of: Respiratory Problems (SOB ON EXTERTION) Genitourinary: History of: Prostate Problems (prostate ca-radiation) Gastrointestinal: History of: Hepatitis (C), Liver Problems (CIRRHOSIS OF LIVER) Musculoskeletal: No history of: Amputation Hematology: History of: Anemia Reproductive: 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) Other: No history of: Anesthesia Reactions - Surgical History Cardiac Surgeries: Sugical HX of: Cardiac Catheterization (5 years ago with stent), Cardiac Surgery (cabg 1984) Thoracic Surgeries: Patient denies;: Lobectomy HEENT Surgeries: Surgical HX of: Eye Surgery (cataract) Patient denies: Tonsilectomy & Adenoidectomy Abdominal Surgeries: Surgical HX of: Abdominal Surgery, Appendectomy, Colonoscopy, EGD (with banding of esoph varices) - Family History Family History: Reports;: Family Hypertension (mom and dad) - Social History Smoking Status: Former smoker Frequency of Alcohol Use: None Type of Drug Use: None 12 point system: reviewed and no additional remarkable complaints except as stated - Constitutional Constitutional: Present: as per HPI - EENT Eyes: Present: as per HPI Ears: Present: as per HPI Nose, mouth and throat: Present: as per HPI, dysphagia - Cardiovascular Cardiovascular: Present: as per HPI, chest pain at rest - Respiratory Respiratory: Present: as per HPI - Gastrointestinal Gastrointestinal: Present: as per HPI, dysphagia, nausea - Genitourinary Genitourinary: Present: as per HPI - Musculoskeletal Musculoskeletal: Present: as per HPI - Neurological Neurological: Present: as per HPI - Psychiatric Psychiatric: Present: as per HPI - Endocrine Endocrine: Present: as per HPI - Hematologic/Lymphatic Hematologic/Lymphatic: Present: as per HPI Exam - Constitutional Vitals: Period Temp Pulse Resp BP Sys/Oakley Pulse Ox Last 24 Hr 97.1 F-98.8 F 64-139 11-22 110-161/62-103 99-100 General appearance: normal weight, no acute distress - Head Head exam: Present: normal inspection, normocephalic - Eye Eye exam: Present: other (Lids and conjunctive are unremarkable). Absent: scleral icterus - ENT ENT exam: Present: normal exam, normal oropharynx - Neck Neck exam: Present: normal inspection - Respiratory Respiratory exam: Present: clear to auscultation bilaterally. Absent: rales, rhonchi, wheezes - Cardiovascular Cardiovascular exam: Present: regular rate and rhythm. Absent: diastolic murmur , JVD, systolic murmur - GI/Abdominal GI/Abdominal exam: Present: normal bowel sounds, soft. Absent: ascites, distended, mass, organomegaly, tenderness - Extremities Exam Extremities exam: Present: normal inspection, full ROM - Back Exam Back exam: Present: normal inspection - Neurological Exam Neurological exam: Present: alert, oriented X3 - Psychiatric Psychiatric exam: Present: normal affect, normal mood - Skin Skin exam: Present: normal color, warm, dry Results - Labs CBC & BMP: 03/15/17 02:21 03/15/17 02:21 Lab Results: I have reviewed the past 24 hour labs Quality Measures - VTE Contraindication to Pharmacological VTE Prophylaxis: High Risk of Bleeding
--- NOTE | 2017-03-15 10:58 | Event Note ---
87-year-old man who presented with unstable angina to the emergency room last night. The patient on arrival though was pain-free. He had marked ECG abnormalities consistent with ischemia. He has had bypass surgery previously and has stenting of his distal RCA through his vein graft to his RCA. He also apparently has an obtuse marginal stenting carried out previously. Patient has elevated troponin. His ECG returned nearly to baseline. The patient previously had GI esophageal issues causing bleeding which is made him at high risk for intervention and taking antiplatelet therapy. Because this the patient has not even been on aspirin. The patient will be evaluated today by GI medicine i.e. Dr. Ketih with endoscopy. If he clears the patient from his esophageal varices and no other GI issues feels that he is stable and able to undergo intervention and take antiplatelet therapy we will proceed with left heart catheterization this afternoon. I have discussed cardiac catheterization with possible percutaneous coronary intervention with the patient, his and granddaughter. I reviewed with the medication procedure as well as have procedure be carried out as well as its risk. Also discussed that if he is at high risk of GI bleeding the a medical therapy would be appropriate. I discussed cardiac catheterization and percutaneous coronary intervention with the patient and available family. I reviewed with them the indications for the procedure and the basis of how the procedure would be carried out. I also reviewed with them the risk of the procedure which include but not necessarily limited to access site bleeding, bruising, pain, swelling or vascular injury that may require emergency vascular surgery, blood transfusion, or thrombin injection. Also discussed the possibility of stroke, myocardial infarction, arrhythmia which may require electrocardioversion, and the possibility of dye reaction that would require medical therapy. Also discussed the possibility of coronary artery injury, ruptured, closure or perforation that may require emergency bypass surgery. We also discussed the possibility of from a major complication. They voice understanding and agree to proceed.
[2017-03-15] MEDS ORDERED: POTASSIUM CHLORIDE RIDER 10 MEQ in PREMIX 1 EACH IV PRN (11:01)
[2017-03-15] MEDS ORDERED: MAGNESIUM SULF RIDER 2 GM in PREMIX 1 EACH IV PRN (11:01)
--- NOTE | 2017-03-15 11:01 | History and Physical Update ---
Sedation H&P Update - History and Physical H&P was reviewed, the patient examined and there: are no changes in the patients condition since last H&P was completed. - Dictation Physical: refer to H&P completed by admitting physician - Physical Exam Mental Status: alert and oriented Heart: regular rate and rhythm Lung: clear to auscultation Abdomen: within normal limits Vitals: within normal limits History and Physical Changes: None - Sedation Plan for Sedation: moderate Patient Consent: Procedure disscussed with patient and patinet has consented., Risks and benefits were discussed with patient,including infection,, bleeding, injury to surrounding structures, seizure, temporary nerve, Patient understands and accepts potential risks/benefits and agrees to, proceed. ASA Class: IV Airway Assessment: Class III: Soft palate, base of uvula visible
[2017-03-15 12:08] LABS: Albumin 3.3 G/DL (3.4-5.0); Bilirubin,Direct 0.1 MG/DL (0.0-0.20); Bilirubin,Indirect 0.5 MG/DL (0.0-1.0); Bilirubin,Total 0.6 MG/DL (0.2-1.0); Total Protein 7.4 G/DL (6.4-8.3)
--- NOTE | 2017-03-15 13:57 | ECHO Report ---
Ney Ordaz 03/15/2017 Exam Date: 09:20 Referring Physician: cristiano Goodrich Technologist: NENITA SORIANO Age: 87 Ht (in): 71 Wt (lb): 205 MExam Location: [facility] Gender: Echo [id number]: Chest pain, unspecified, Non-ST elevIndications:ation (NSTEMI) myocardial infarction BP: 138 / 72 HR: 77 SinusRhythm: Technical Quality: IMPRESSIONS Technically difficult study 1-2+ left atrial enlargement 1+ concentric LVH Hyperdynamic LV systolic function with ejection fraction estimated be 70% without segmental wall motion normality 1-2+ aortic stenosis with mean and peak gradients of 13/23 mmHg MEASUREMENTS (Male / Female) Normal Values 2D ECHO LV Diastolic Diameter PLAX 4.7 cm 4.2 - 5.9 / 3.9 - 5.3 cm LV Systolic Diameter PLAX 2.4 cm LV Fractional Shortening PLAX 50.2 % IVS Diastolic Thickness 1.3 cm 0.6 - 1.0 / 0.6 - 0.9 cm LVPW Diastolic Thickness 1.2 cm 0.6 - 1.0 / 0.6 - 0.9 cm RV Internal Dim ED PLAX 3.6 cm Aortic Root Diameter 3.5 cm LA Systolic Diameter LX 4.1 cm 3.0 - 4.0 / 2.7 - 3.8 cm FINDINGS Left Ventricle Normal left ventricular cavity size. Mild left ventricular hypertrophy. Left ventricular ejection fraction is estimated at 60 % Right Ventricle Mildly increased right ventricular size. Right Atrium The right atrium is mildly enlarged. Left Atrium Moderately increased left atrial size. Mitral Valve Morphologically normal mitral valve without significant stenosis or prolapse. There is no mitral regurgitation. Aortic Valve Moderate aortic valve calcification. Mean gradient 13 mmHg, ARNALDO 1.4 cm. No aortic valve regurgitation. Tricuspid Valve Morphologically normal tricuspid valve without significant stenosis or regurgitation. Pulmonary artery systolic pressure is normal. Pulmonic Valve Morphologically normal pulmonic valve without significant stenosis. There is no pulmonic regurgitation. Pericardium Normal pericardium without effusion. Aorta Normal ascending aorta dimension. Roberto Gunn (Electronically Signed) 15 March 2017 Final Date: 13:56
[2017-03-15] MEDS ORDERED: MIDAZOLAM 2 MG/2 ML VIAL ONE ×2 (13:59→15:41)
[2017-03-15] MEDS ORDERED: MEPERIDINE 50 MG/1 ML VIAL ONE ×2 (13:59)
[2017-03-15] MEDS ORDERED: NALOXONE 0.4 MG/ML VIAL ONE (14:03)
[2017-03-15] MEDS ORDERED: FLUMAZENIL 0.5 MG/5 ML VIAL IV ONE (14:04)
[2017-03-15] MEDS: SODIUM CHLORIDE 0.9% 1,000 ML IV SCH (14:48)
--- NOTE | 2017-03-15 14:53 | History and Physical Update ---
History and Physical Update - History and Physical H&P was reviewed, the patient examined and there: are no changes in the patients condition since last H&P was completed. - Physical Exam Mental Status: alert and oriented Heart: regular rate and rhythm Lung: clear to auscultation Abdomen: within normal limits Vitals: within normal limits
--- NOTE | 2017-03-15 15:00 | Operative Note ---
Date of procedure: 03/15/17 Pre-op diagnosis: History of esophageal varices Procedure: Procedure: Esophagogastroduodenoscopy Brief clinical abstract: Patient is an 87-year-old male with cirrhosis and history of esophageal varices banded in the past. He is admitted with substernal chest pain with EKG changes and coronary arteriograms with possible stenting is planned. We are doing EGD to reevaluate his esophagus and upper GI tract given cirrhosis and to assess bleeding risk if long-term antiplatelet therapy/anticoagulation needed. Indication for procedure: Cirrhosis, history of esophageal varices Endoscopic findings:[After informed consent was obtained, the patient was placed in the left lateral decubitus position. The gastroscope was inserted in the upper esophagus under direct vision with no resistance encountered. Esophageal mucosa appeared normal down the level 22 cm below incisors. 2 columns of very minimal grade I varices were noted in the upper to mid esophagus but were not visible extending into the distal esophagus. Squamocolumnar junction was sharply demarcated above a small hiatal hernia. The endoscope was advanced in the stomach which was carefully examined including retroflexed view of the cardia and fundus. There was prominence of the area gastricae pattern and some scattered subepithelial hemorrhage in the proximal to mid stomach consistent with portal gastropathy. No varices were seen in the stomach. No fluid or retained food material was in the stomach. The pyloric channel, duodenal bulb, second and third portion of the duodenum were normal. The endoscope was withdrawn and patient appeared to tolerate the procedure well. Impression: #1 small grade I esophageal varices #2 mild portal gastropathy #3 small hiatal hernia Recommendations: Proceed with cardiac catheterization and coronary interventions as indicated. Would appear to have low risk of upper GI bleeding given endoscopic findings today. I will sign off. Please call if needed. F F F Anesthesia: conscious sedation Surgeon / Physician: Kevin Keith Estimated blood loss: none Specimens: none sent Condition: stable Disposition: no change Results - Labs CBC & BMP: 03/15/17 02:21 03/15/17 02:21 Discharge Plan - Discharge Medications No Action Ferrous Sulfate [Ferrous Sulfate Cap] 325 mg PO DAILY Amlodipine Besylate 2.5 mg PO BEDTIME Lisinopril 2.5 mg PO DAILY Memantine [Namenda] 10 mg PO BID W/MEALS Isosorbide Dinitrate [Isordil] 10 mg PO BID #60 tablet Nitroglycerin Sl Tab [Nitrostat] 0.4 mg SL Q5M PRN #25 tablet PRN Reason: Chest Pain Propranolol Tab [Inderal Tab] 10 mg PO QID #120 tablet Acetaminophen Tab [Tylenol Tab] 1,000 mg PO Q6H Omeprazole 20 mg PO DAILY Glimepiride 1 mg PO BID W/MEALS - Follow Up or Referral - Forms/Instructions
[2017-03-15 15:13] LABS: CKMB % 6.9 %
[2017-03-15 15:16] LABS: Troponin I Only 1.6 NG/ML (0.00-0.045)
[2017-03-15] MEDS ORDERED: LIDOCAINE 1% 20 ML VIAL ONE (15:41)
[2017-03-15] MEDS ORDERED: fentaNYL 100 MCG/2 ML VIAL ONE (15:41)
[2017-03-15] MEDS ORDERED: TIROFIBAN 5,000 MCG/100 ML PREMIX IV ONE (16:20)
[2017-03-15] MEDS ORDERED: ENOXAPARIN 60 MG/0.6 ML SYRINGE ONE (16:20)
[2017-03-15] MEDS ORDERED: TICAGRELOR 90 MG TABLET ONE (16:42)
--- NOTE | 2017-03-15 16:47 | Operative Note ---
Date of procedure: 03/15/17 Procedure Preformed: Left heart catheterization with right coronary angiograms, SVG angiograms and PCI with stenting of the proximal circumflex artery. Proximal circumflex artery with 95% stenosis and IVAN II flow with residuals stenosis of 0 and IVAN-3 flow post stenting. Surgeon / Physician: Brodie Howard Road Sign Installer: Kamran Shin Post-op diagnosis: same Findings: Right coronary graft is now closed with the other grafts patent, high-grade proximal circumflex artery stenosis that was successfully intervened on. See full report. Specimens: none sent Estimated blood loss: minimal Condition: stable Anesthesia: local, conscious sedation Disposition: floor
[2017-03-15] MEDS: TIROFIBAN 5,000 MCG/100 ML PREMIX IV SCH (16:48)
[2017-03-15] MEDS ORDERED: SODIUM CHLORIDE 0.9% 1,000 ML IV SCH (17:00)
--- NOTE | 2017-03-15 17:20 | Cardiac Catheterization ---
Date of Procedure:: 03/15/17 Pre-op Diagnosis: Non-ST segment elevation myocardial infarction Post-op diagnosis: same Procedure: LEFT HEART CATHERIZATION History: 87-year-old man who years ago had bypass surgery. He has had prior stenting of his distal RCA. He presented with severely abnormal ECG and unstable angina. His troponin increased indicating a non-ST segment elevation microinfarction. Previously he has had esophageal varices and liver disease that prevented him from having anticoagulation and antiplatelet therapy. Today he was reevaluated by GI medicine i.e. Dr. Keith who cleared him preprocedure as being a low GI risk for bleeding. Pre-Op diagnosis: Coronary disease with non-ST segment elevation microinfarction. Known prior to LAD SVGs, OM, RCA. Postoperative diagnosis: High-grade stenosis of the proximal circumflex artery successfully intervened with stenting. Previously patent right coronary artery graft is now close. Procedures: 1. Left heart catheterization. 2. Left ventricular angiogram. 3. Selective left and right coronary angiograms. 4. Selective SVG angiogram 3. 5. Percutaneous coronary intervention with stent in proximal circumflex artery. 6. Right common femoral artery angiogram with Angio-Seal hemostasis. Equipment: 6 Angolan arterial sheath, 6 Angolan diagnostic pigtail catheter, JL4, JR4, MP A1 diagnostic catheters. A 6 Angolan Angio-Seal hemostatic device. For percutaneous coronary intervention: EBU 4 PCI guide catheter, PT choice for guidewire, a 3.0 x 12 mm [place] PTCA balloon, Xience Alpine 3.0 x 12 mm ORACIO Medications: Preoperative Benadryl and Valium given by mouth. Lidocaine 1% local anesthesia 10 mls administered by myself. Patient been sedated by anesthesia prior to coming to the catheterization laboratory for his GI procedure. For PCI: Lovenox 30 mgms; Aggrastat bolus 46 mls; Aggrastat infusion 8.4 ml/hr, Brilinta 180 mgms. Complications: None immediate. Contrast: Visipaque 123 milliliters. Description of procedure: After informed consent the patient was given preoperative medications and brought to the catheterization laboratory where their right groin was prepped and draped in usual fashion. IV sedation was then obtained after which local anesthesia was administered at the right groin over the right common femoral artery. Using modified Seldinger technique the right common femoral artery was cannulated with 6 Angolan arterial sheath placed. The pigtail catheter was then advanced through the sheath in a retrograde approach through the aorta to the aortic valve. The catheter was advanced through the aortic valve where left ventricular pressures were measured. The catheter was then pulled back into the aortic root and pressures measured. LV gram was not obtained secondary to the patient's renal function and we are had an echocardiogram earlier today. The pigtail catheter was then removed. The JL4 diagnostic coronary catheter was then advanced through the sheath in a retrograde approach and used to cannulate the left coronary artery of which angiograms were obtained in multiple projections. This catheter was then removed. The JR 4 diagnostic coronary catheter was then advanced retrograde through the aorta and used to cannulate the saphenous vein graft to the LAD with angiograms obtained in multiple projections were runoff. The same catheter was then used to cannulate the saphenous vein graft to the obtuse marginal branch in multiple projections. Same catheter was then used to cannulate the right coronary artery and angiograms obtained in multiple projections. We then cannula what we thought was probably the remnant of the proximal anastomosis site with assess vein graft to the RCA but was not clear. We thus exchanged for a MP A1 diagnostic catheter that was used to cannulate the remnant of the ostium of the RCA graft and confirmed that it was closed. Angiograms were then reviewed. At this point intervention of the circumflex R was then carried out. The EBU 4 PCI guide catheter advanced used to cannulate the left main coronary artery. Through this the PT choice extra support guidewire was then advanced crossing the proximal circumflex artery stenosis and anchored into the distal circumflex artery. Over this the 3.0 x 12 mm Rx apex balloon was advanced in a predilation at 8 barrie for 20 seconds was carried out. Angiograms revealed improvement but still significant stenosis of 40-50%. We then exchanged for the Xience Alpine 3.0 x 12 mm ORACIO. The stent was deployed across the lesion at 14 barrie for 25 seconds. At this point the stent balloon was pulled back into the catheter and final angiograms were obtained. We had excellent results with the 95% stenotic lesion dilated 0% residual stenosis and a IVAN II flow with a residual IVAN-3 flow. At this point stent balloon and guidewire were removed. The EBU 4 guide Was pulled back into the femoral artery sheath and angiogram obtained in the BARBOS[place] view. Angio-Seal hemostasis was then obtained. No immediate complications. Hemodynamic data: LV 179/3, EDP 12; AO root 176/84, mean 123. Left ventricular angiogram: LV gram not done to conserve contrast in his renal dysfunction and we have an echocardiogram revealing appropriate LV function. Left main coronary artery angiogram: Left main coronary artery somewhat calcified [place] LAD and circumflex arteries. He has less than 30% stenosis. Left anterior descending artery angiogram: LAD very proximally is a medium caliber vessel but quickly tapers to a very small diffusely stenosed vessel prior to the takeoff of the first septal box toe buffer diagonal branch. The LAD is totally occluded past the takeoff of the first septal box toe buffer first diagonal branches. The first diagonal itself has a long proximal stenosis of 90 +%. The mid and distal LAD are seen by way assess vein graft with good runoff distally and retrograde flow to the more mid vessel. There is diffuse calcification in the LAD. The distal LAD is small and there is a 80-90% stenosis present. SVG to LAD angiogram: This graft has less than 50% ostial stenosis that appeared to be previously present on study in 2008. The body of this graft is diffusely calcified but widely patent. The proximal distal anastomoses are intact and patent. Circumflex artery angiogram: Circumflex artery is a medium large size vessel proximally generalized very proximal to a very small first obtuse marginal branch. In mid vessel there is a mid size long second obtuse marginal branch with the circumflex artery terminating in the form of small third obtuse marginal branch. In the proximal portion circumflex artery we see that there is a 95% stenosis with IVAN II flow. There is an obtuse marginal that apparently is visualized by way saphenous vein graft. This obtuse marginal branch has good antegrade runoff. SVG to obtuse marginal branch angiogram: This graft is patent. Is minimally narrowed proximally and is somewhat calcified. The distal anastomosis is intact as is the proximal anastomosis. Right coronary artery angiogram: RCA is diffusely calcified and high-grade proximal stenosis. Is totally occluded past the takeoff of the conus branch. There is a trivial small vessel seen in the distal RCA distribution from left to right collaterals. SVG to RCA angiogram: This graft is totally occluded. PCI of circumflex artery: Proximal circumflex artery was intervened with PTCA and stenting. Preintervention we had a 95% lesion with IVAN II flow. Post stenting we had 0% residual stenosis and IVAN-3 flow. Right common femoral artery angiogram: Right common femoral artery is somewhat calcified but patent. Successful hemostasis. Impression: 1. Left ventriculogram not done to conserve contrast and already knew what LV function was by echo. 2. LVEDP is normal at 12 mmHg. 3. No gradient across the aortic valve. 4. RCA is totally occluded in its proximal portion with a trivial vessel seen distally by collaterals. 5. SVG to RCA is totally occluded. 6. Left main coronary with less than 30% stenosis. 7. LAD with high-grade proximal stenosis and total occlusion past D1. Mid and distal vessel seen by way of SVG and there is 80-90% distal apical stenosis but vessel is small here. First that has a long 90% stenosis. 8. SVG to LAD is patent. There is some narrowing proximally but certainly less than 50%. 9. Circumflex artery with apparently an occluded obtuse marginal branch proximally. Circumflex artery proper has a proximal 95% stenosis with IVAN II flow. 10. SVG to OM is patent. 11. Successful stenting of the proximal circumflex artery with 95% stenosis dilated to 0% residual stenosis and a starting IVAN II flow with a residual IVAN-3 flow. 12. Right common femoral artery is widely patent successfully initial hemostasis. Discussion: We will monitor the patient post intervention. He will be following the CCU overnight. We will continue risk factor modifications. Implants: See above Anesthesia: local, moderate conscious sedation Surgeon / Physician: Brodie Howard Ceramic Tile Installer: other (aRmu Shin RN) Estimated blood loss: minimal Specimens: none sent Condition: stable Disposition: ICU/CCU - Medications / Follow-up
--- NOTE | 2017-03-15 17:40 | Event Note ---
Patient doing well post heart catheterization. His right groin is stable. He does not have any chest pain or symptomatology. Rhythm stable.
[2017-03-15] MEDS: TICAGRELOR 90 MG TABLET PO SCH (20:57)
[2017-03-15] MEDS ORDERED: ROSUVASTATIN 20 MG TABLET PO SCH (21:00)
[2017-03-15] MEDS ORDERED: amLODIPine 2.5 MG TABLET PO SCH (21:00)
[2017-03-16] MEDS: NITROGLYCERIN 2% OINT 1 INCH/GM PACK TOP SCH ×3 (01:15→12:39)
[2017-03-16] MEDS: ACETAMINOPHEN 500 MG TABLET PO SCH ×2 (04:42→12:38)
[2017-03-16] MEDS: TIROFIBAN 5,000 MCG/100 ML PREMIX IV SCH (04:42)
[2017-03-16 05:09] LABS: Basophils % 0.4 % (0.0-0.8); Eosinophils # 0.1 10*3/uL (0.0-0.87); Hematocrit 31.2 VOL% (42.0-52.0); Hemoglobin 10.1 GM/DL (14.0-18.0); Immature Granulocytes % 0.2 %; Immature Granulocytes Absolute 0.01 #; Lymphocytes # 0.9 10*3/uL (1.4-4.0); Lymphocytes % 18.4 % (21.2-54.2); Mean Corpuscular HGB Conc 32.4 GM/DL (32-36); Mean Corpuscular Hemoglobin 29 PG (27-34); Mean Corpuscular Volume 88.6 FL (87-102); Mean Platelet Volume 9.9 FL (9.6-12.0); Monocytes # 0.3 10*3/uL (0.11-0.8); Monocytes % 6.7 % (1.7-12.7); Neutrophils # 3.7 10*3/uL (1.4-7.4); Neutrophils % 72.3 % (38.7-73.9); Red Blood Count 3.52 MC/CUMM (3.8-5.5); White Blood Count 5.1 T/CUMM (4-12)
[2017-03-16 05:16] LABS: Platelet Count 78 T/CUMM (130-400)
[2017-03-16 05:45] LABS: Calcium 8.7 MG/DL (8.5-10.1); Magnesium 2.2 MG/DL (1.8-2.4); Osmolality,Calculated 280.4 MOS/KG (273-304); Potassium 4.1 MMOL/L (3.5-5.1)
[2017-03-16 05:47] LABS: Calcium 8.6 MG/DL (8.5-10.1); Osmolality,Calculated 277.5 MOS/KG (273-304); Potassium 4.1 MMOL/L (3.5-5.1)
[2017-03-16 05:48] LABS: Troponin I Only 0.813 NG/ML (0.00-0.045)
[2017-03-16 06:19] LABS: Hypochromasia 1+; Microcytosis 1+; Ovalocytes Few
[2017-03-16 06:20] LABS: Platelet Estimate Decreased; Tear Drop Cells Slight
[2017-03-16] MEDS: INSULIN REGULAR 100 UNIT/ML SUBCUT SCH ×2 (08:13→12:38)
--- NOTE | 2017-03-16 08:16 | EKG Report ---
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
[2017-03-16] MEDS ORDERED: ASPIRIN EC 81 MG TABLET PO SCH (09:00)
--- NOTE | 2017-03-16 09:00 | Discharge Summary ---
Hospital Course - Hospital Course Hospital Course: Mr. Ordaz was admitted with non-STEMI, with ST depression of nearly 3 mm which resolved with treatment as did his chest pain. Heart catheterization was done early performed as he said in the ER that he was unable to take aspirin and Plavix. Fortunately his chest pain did not resume, but he did relate with troponin greater than 5. Dr. Keith performed EGD yesterday afternoon which showed the following: Impression: #1 small grade I esophageal varices #2 mild portal gastropathy #3 small hiatal hernia Given these benign findings, and his clearance to use dual antiplatelet therapy , he is taken to the heart catheterization lab where he was found have a critical proximal circumflex lesion which was stented successfully, and cath impression as follows: Impression: 1. Left ventriculogram not done to conserve contrast and already knew what LV function was by echo. 2. LVEDP is normal at 12 mmHg. 3. No gradient across the aortic valve. 4. RCA is totally occluded in its proximal portion with a trivial vessel seen distally by collaterals. 5. SVG to RCA is totally occluded. 6. Left main coronary with less than 30% stenosis. 7. LAD with high-grade proximal stenosis and total occlusion past D1. Mid and distal vessel seen by way of SVG and there is 80-90% distal apical stenosis but vessel is small here. First that has a long 90% stenosis. 8. SVG to LAD is patent. There is some narrowing proximally but certainly less than 50%. 9. Circumflex artery with apparently an occluded obtuse marginal branch proximally. Circumflex artery proper has a proximal 95% stenosis with IVAN II flow. 10. SVG to OM is patent. 11. Successful stenting of the proximal circumflex artery with 95% stenosis dilated to 0% residual stenosis and a starting IVAN II flow with a residual IVAN-3 flow. 12. Right common femoral artery is widely patent successfully initial hemostasis. Today he is doing very well clinically and feels well. He has chronic thrombocytopenia going back to August 2014 by records platelet count between 80 90,000 typically. His hematocrit is stable today and his right groin site is without breathing hematoma or bruit. We will have him ambulate in the CCU prior to discharge. He was given Brilinta initially, but I am changing to Plavix as there is a bit of a less bleeding risk. He will get 300 g this morning and then get 75 g per day thereafter. He will follow Dr. Willett the next 1-2 weeks time. Specialty Discharge - Follow Up or Referrals Follow up with: Kevin Keith MD [Physician] - 1 Month Aureliano Willett MD [Physician] - 1 Week (With EKG FLP CMP CBC) Discharge Plan - Discharge Medications No Action Ferrous Sulfate [Ferrous Sulfate Cap] 325 mg PO DAILY Amlodipine Besylate 2.5 mg PO BEDTIME Lisinopril 2.5 mg PO DAILY Memantine [Namenda] 10 mg PO BID W/MEALS Isosorbide Dinitrate [Isordil] 10 mg PO BID #60 tablet Nitroglycerin Sl Tab [Nitrostat] 0.4 mg SL Q5M PRN #25 tablet PRN Reason: Chest Pain Propranolol Tab [Inderal Tab] 10 mg PO QID #120 tablet Acetaminophen Tab [Tylenol Tab] 1,000 mg PO Q6H Omeprazole 20 mg PO DAILY Glimepiride 1 mg PO BID W/MEALS - Follow Up or Referral - Forms/Instructions Exam - Constitutional Vitals: Period Temp Pulse Resp BP Sys/Oakley Pulse Ox Last 24 Hr 97.8 F-98.5 F 60-77 10-25 122-182/66-99 93-100 General appearance: normal weight, no acute distress - Head Head exam: Present: normal inspection, normocephalic, atraumatic - Respiratory Respiratory exam: Present: clear to auscultation bilaterally. Absent: stridor, wheezes - Cardiovascular Cardiovascular exam: Present: regular rate and rhythm. Absent: diastolic murmur , rubs - GI/Abdominal GI/Abdominal exam: Present: soft. Absent: tenderness - Extremities Exam Extremities exam: Present: other (No bruit hematoma or bleeding at the right groin access site). Absent: edema - Neurological Exam Neurological exam: Present: alert, oriented X3 - Psychiatric Psychiatric exam: Present: normal affect - Skin Skin exam: Present: warm Discharge Results Procedures and tests throughout hospitalization: Pending Orders 03/15/17 10:32 CL heart Routine 03/15/17 11:27 Occult Blood, Stool Routine 03/17/17 04:00 BMP w/ Mg [Basic Metabolic Panel w/Mg] IN AM CBC [Comp Blood Count Auto Diff] IN AM 03/18/17 04:00 BMP w/ Mg [Basic Metabolic Panel w/Mg] IN AM CBC [Comp Blood Count Auto Diff] IN AM Labs on day of discharge: Labs from last 24 hours 03/16/17 03/16/17 03/16/17 07:14 04:38 04:38 WBC RBC Hgb Hct MCV MCH MCHC RDW Plt Count MPV Neut % (Auto) Lymph % (Auto) [place] % (Auto) Eos % (Auto) Baso % (Auto) Neut # (Auto) Lymph # (Auto) [place] # (Auto) Eos # (Auto) Baso # (Auto) Immature Gran % Nucleated RBC % Immature Gran # Nucleated RBCs # Platelet Estimate Hypochromasia Microcytosis Tear Drop Cells Ovalocytes Sodium 139 140 Potassium 4.1 4.1 Chloride 105 106 Carbon Dioxide 25 25 Anion Gap 13.1 13.1 BUN 16 17 Creatinine 1.10 1.10 GFR Calculation 75 75 BUN/Creatinine Ratio 14.00 15.00 Glucose 100 101 POC Glucose 126 H Calculated Osmolality 277.5 280.4 Calcium 8.6 8.7 Magnesium 2.2 Total Bilirubin Direct Bilirubin Indirect Bilirubin AST ALT Alkaline Phosphatase Total Creatine Kinase CK-MB (CK-2) CK and CKMB Interp Troponin I 0.813 H D Total Protein Albumin Amylase 03/16/17 03/15/17 03/15/17 04:38 20:50 17:18 WBC 5.1 RBC 3.52 L Hgb 10.1 L Hct 31.2 L MCV 88.6 MCH 29 MCHC 32.4 RDW 15.0 Plt Count 78 L MPV 9.9 Neut % (Auto) 72.3 Lymph % (Auto) 18.4 L [place] % (Auto) 6.7 Eos % (Auto) 2.0 Baso % (Auto) 0.4 Neut # (Auto) 3.7 Lymph # (Auto) 0.9 L [place] # (Auto) 0.3 Eos # (Auto) 0.1 Baso # (Auto) 0.0 Immature Gran % 0.2 Nucleated RBC % 0.0 Immature Gran # 0.01 Nucleated RBCs # 0.00 Platelet Estimate Decreased Hypochromasia 1+ Microcytosis 1+ Tear Drop Cells Slight Ovalocytes Few Sodium Potassium Chloride Carbon Dioxide Anion Gap BUN Creatinine GFR Calculation BUN/Creatinine Ratio Glucose POC Glucose 169 H 164 H Calculated Osmolality Calcium Magnesium Total Bilirubin Direct Bilirubin Indirect Bilirubin AST ALT Alkaline Phosphatase Total Creatine Kinase CK-MB (CK-2) CK and CKMB Interp Troponin I Total Protein Albumin Amylase 03/15/17 03/15/17 03/15/17 14:33 11:44 08:25 WBC RBC Hgb Hct MCV MCH MCHC RDW Plt Count MPV Neut % (Auto) Lymph % (Auto) [place] % (Auto) Eos % (Auto) Baso % (Auto) Neut # (Auto) Lymph # (Auto) [place] # (Auto) Eos # (Auto) Baso # (Auto) Immature Gran % Nucleated RBC % Immature Gran # Nucleated RBCs # Platelet Estimate Hypochromasia Microcytosis Tear Drop Cells Ovalocytes Sodium Potassium Chloride Carbon Dioxide Anion Gap BUN Creatinine GFR Calculation BUN/Creatinine Ratio Glucose POC Glucose 178 H 160 H Calculated Osmolality Calcium Magnesium Total Bilirubin Direct Bilirubin Indirect Bilirubin AST ALT Alkaline Phosphatase Total Creatine Kinase 89 CK-MB (CK-2) 6.1 H CK and CKMB Interp 6.9 Troponin I 1.600 H D Total Protein Albumin Amylase 03/15/17 03/15/17 06:24 06:24 WBC RBC Hgb Hct MCV MCH MCHC RDW Plt Count MPV Neut % (Auto) Lymph % (Auto) [place] % (Auto) Eos % (Auto) Baso % (Auto) Neut # (Auto) Lymph # (Auto) [place] # (Auto) Eos # (Auto) Baso # (Auto) Immature Gran % Nucleated RBC % Immature Gran # Nucleated RBCs # Platelet Estimate Hypochromasia Microcytosis Tear Drop Cells Ovalocytes Sodium Potassium Chloride Carbon Dioxide Anion Gap BUN Creatinine GFR Calculation BUN/Creatinine Ratio Glucose POC Glucose Calculated Osmolality Calcium Magnesium Total Bilirubin 0.60 Direct Bilirubin 0.10 Indirect Bilirubin 0.5 AST 42 H ALT 33 Alkaline Phosphatase 77 Total Creatine Kinase CK-MB (CK-2) CK and CKMB Interp Troponin I Total Protein 7.4 Albumin 3.3 L Amylase 78 DS: Provider Date of admission: 03/14/17 21:04 Primary care physician: Anat Zelaya, Attending physician on admission: Stan Rivero Consults: 03/14/17 22:33 Consult to Case Mgmt/Social Srvs [CONS] Routine Reason for Case Mgmt/Social Srvs: Rehab 03/15/17 09:28 Consult to Physician [CONS] Routine Comment: NSTEMI, h/o varices; can take ASA/Plavix? Consulting Provider: Kevin Keith 03/15/17 16:48 Consult to Cardiac Rehabilitation [CONS] Routine Reason for Cardiac Rehabilitation: Risk Factor Modification Discharging clinician: Roberto Mir
[2017-03-16] MEDS ORDERED: CLOPIDOGREL 300 MG TABLET PO ONE (09:03)
[2017-03-16] MEDS: FERROUS SULFATE 325 MG TABLET PO SCH (09:29)
[2017-03-16] MEDS: MEMANTINE 10 MG TABLET PO SCH (09:29)
[2017-03-16] MEDS: METOPROLOL TARTRATE 50 MG TABLET PO SCH (09:29)
[2017-03-16] MEDS: PROPRANOLOL 10 MG TABLET PO SCH (09:30)
[2017-03-16] MEDS: GLIMEPIRIDE 2 MG TABLET PO SCH (09:30)
[2017-03-16] MEDS: PANTOPRAZOLE 40 MG TABLET PO SCH (09:30)
[2017-03-16] MEDS: LISINOPRIL 5 MG TABLET PO SCH (09:31)
[2017-03-16 14:11] VITALS: BP 144/70
[2017-03-16] MEDS: TICAGRELOR 90 MG TABLET PO SCH (14:11)
[2017-03-17] MEDS ORDERED: CLOPIDOGREL 75 MG TABLET PO SCH (09:00)
== END 2017-03-16 12:50 | disposition home or self-care (01) | DRG 247 ==
LOC: N.ED 19:40 → N.EDINP 21:04 → N.CC 21:22
PROVIDERS: ADMIT Internal Medicine Cardiovascular Disease; ATTEND Internal Medicine Cardiovascular Disease

== ENCOUNTER 2017-10-11 11:38 | Inpatient (IN) ==
[2017-10-11] MEDS ORDERED: LEVOFLOXACIN INJ 750 MG in PREMIX 1 EACH IV STA (12:01)
[2017-10-11] MEDS ORDERED: ONDANSETRON 4 MG/2 ML VIAL IV STA (12:01)
[2017-10-11] MEDS ORDERED: PANTOPRAZOLE 40 MG VIAL IV STA (12:01)
[2017-10-11] MEDS ORDERED: metroNIDAZOLE INJ 500 MG in PREMIX 1 EACH IV STA (12:01)
[2017-10-11] MEDS ORDERED: SODIUM CHLORIDE 0.9% 500 ML IV STA (12:01)
[2017-10-11] MEDS ORDERED: PANTOPRAZOLE 40 MG VIAL IV ONE (13:09)
[2017-10-11] MEDS ORDERED: ONDANSETRON 4 MG/2 ML VIAL ONE (13:09)
[2017-10-11 13:13] LABS: Basophils % 0.2 % (0.0-0.8); Hematocrit 33.1 VOL% (42.0-52.0); Hemoglobin 10.6 GM/DL (14.0-18.0); Immature Granulocytes % 0.5 %; Immature Granulocytes Absolute 0.03 #; Lymphocytes # 0.4 10*3/uL (1.4-4.0); Lymphocytes % 6.2 % (21.2-54.2); Mean Corpuscular Hemoglobin 29 PG (27-34); Mean Corpuscular Volume 90.2 FL (87-102); Mean Platelet Volume 9.7 FL (9.6-12.0); Monocytes # 0.3 10*3/uL (0.11-0.8); Monocytes % 5.2 % (1.7-12.7); Neutrophils # 5.3 10*3/uL (1.4-7.4); Neutrophils % 87.9 % (38.7-73.9); Red Blood Count 3.67 MC/CUMM (3.8-5.5); Red Cell Distribution Width 14.6 % (9.3-17.3)
[2017-10-11 13:16] LABS: Platelet Count 56 T/CUMM (130-400)
[2017-10-11 13:20] LABS: INR 1.1; Partial Thromboplastin Time 31.7 SECS (0-40)
[2017-10-11 13:35] LABS: Ammonia 11 UMOL/L (11-32)
[2017-10-11 13:39] LABS: Alanine Aminotransferase 32 U/L (16-61); Albumin 3.6 G/DL (3.4-5.0); Alkaline Phosphatase 68 U/L (45-117); Aspartate Amino Transferase 42 U/L (0-37); Blood Urea Nitrogen 23 MG/DL (7-18); Calcium 8.7 MG/DL (8.5-10.1); Glucose 172 MG/DL (74-106); Osmolality,Calculated 277.1 MOS/KG (273-304); Potassium 4.3 MMOL/L (3.5-5.1); Sodium 135 MMOL/L (136-145); Total Protein 8.2 G/DL (6.4-8.3)
[2017-10-11 13:45] LABS: Troponin I Only 0.271 NG/ML (0.00-0.045)
[2017-10-11] MEDS ORDERED: LEVOFLOXACIN INJ 150 ML IV ONE (14:39)
[2017-10-11] MEDS ORDERED: ACETAMINOPHEN 500 MG TABLET ONE (14:40)
[2017-10-11] MEDS ORDERED: ACETAMINOPHEN 325 MG TABLET PO PRN (16:44)
[2017-10-11] MEDS ORDERED: ONDANSETRON 4 MG/2 ML VIAL IV PRN ×2 (16:44→16:47)
[2017-10-11] MEDS ORDERED: traZODone 50 MG TABLET PO PRN (16:44)
[2017-10-11] MEDS ORDERED: DEXTROSE 50% 25 GM/50 ML VIAL IV PRN (16:49)
[2017-10-11] MEDS ORDERED: GLUCAGON 1 MG VIAL IM PRN (16:49)
[2017-10-11] MEDS ORDERED: ACETAMINOPHEN 500 MG TABLET PO ONE (17:01)
[2017-10-11] MEDS ORDERED: metroNIDAZOLE 500 MG/100 ML PREMIX IV ONE (17:16)
[2017-10-11] MEDS ORDERED: INFLUENZA VIRUS VACCINE 0.5 ML SYRINGE IM ONE (17:54)
[2017-10-11] MEDS ORDERED: PNEUMOCOCCAL VACCINE (13 VALENT) 0.5 ML SYRINGE IM ONE (17:56)
[2017-10-11] MEDS: MEMANTINE 10 MG TABLET PO SCH (18:54)
[2017-10-11] MEDS: SODIUM CHLORIDE 0.9% 1,000 ML IV SCH (18:55)
[2017-10-11] MEDS: METOPROLOL SUCCINATE XL 25 MG TABLET PO SCH (20:50)
[2017-10-11] MEDS: INSULIN REGULAR 100 UNIT/ML SUBCUT SCH (20:50)
[2017-10-12] MEDS: metroNIDAZOLE INJ 500 MG in PREMIX 1 EACH IV SCH ×3 (02:43→21:47)
[2017-10-12] MEDS: SODIUM CHLORIDE 0.9% 1,000 ML IV SCH ×4 (02:43→19:18)
[2017-10-12 05:24] LABS: Basophils % 0.3 % (0.0-0.8); Hematocrit 28.9 VOL% (42.0-52.0); Hemoglobin 9.3 GM/DL (14.0-18.0); Immature Granulocytes % 0.6 %; Immature Granulocytes Absolute 0.02 #; Lymphocytes # 0.6 10*3/uL (1.4-4.0); Lymphocytes % 17.3 % (21.2-54.2); Mean Corpuscular HGB Conc 32.2 GM/DL (32-36); Mean Corpuscular Hemoglobin 29 PG (27-34); Mean Corpuscular Volume 90.9 FL (87-102); Mean Platelet Volume 10.9 FL (9.6-12.0); Monocytes # 0.2 10*3/uL (0.11-0.8); Neutrophils # 2.6 10*3/uL (1.4-7.4); Neutrophils % 74.8 % (38.7-73.9); Red Blood Count 3.18 MC/CUMM (3.8-5.5); Red Cell Distribution Width 14.6 % (9.3-17.3); White Blood Count 3.4 T/CUMM (4-12)
[2017-10-12 05:28] LABS: Platelet Count 42 T/CUMM (130-400)
[2017-10-12 05:49] LABS: Calcium 7.9 MG/DL (8.5-10.1); Osmolality,Calculated 275.1 MOS/KG (273-304); Potassium 4.4 MMOL/L (3.5-5.1)
[2017-10-12 06:34] LABS: Band Neutrophils 12 % (0-10); Lymphocytes 8 % (20-55); Segmented Neutrophils 72 % (50-85); Total Cells Counted 100
[2017-10-12 06:35] LABS: Giant Platelets Few; Hypochromasia 1+; Microcytosis Slight; Ovalocytes Slight; Platelet Estimate Decreased
[2017-10-12] MEDS: METOPROLOL SUCCINATE XL 25 MG TABLET PO SCH ×2 (10:12→21:49)
[2017-10-12] MEDS: MEMANTINE 10 MG TABLET PO SCH ×2 (10:12→17:25)
[2017-10-12] MEDS: PANTOPRAZOLE 40 MG TABLET PO SCH (10:12)
[2017-10-12] MEDS: INSULIN REGULAR 100 UNIT/ML SUBCUT SCH ×4 (15:26→21:49)
[2017-10-12] MEDS: LEVOFLOXACIN INJ 500 MG in PREMIX 1 EACH IV SCH (17:25)
[2017-10-12] MEDS: ISOSORBIDE DINITRATE 10 MG TABLET PO SCH (21:48)
[2017-10-12] MEDS: ROSUVASTATIN 10 MG TABLET PO SCH (21:48)
[2017-10-13] MEDS: metroNIDAZOLE INJ 500 MG in PREMIX 1 EACH IV SCH ×3 (02:51→18:53)
[2017-10-13 05:54] LABS: Basophils % 0.3 % (0.0-0.8); Eosinophils % 0.3 % (0.00-10.9); Hematocrit 27.6 VOL% (42.0-52.0); Hemoglobin 8.8 GM/DL (14.0-18.0); Immature Granulocytes Absolute 0.03 #; Lymphocytes # 0.6 10*3/uL (1.4-4.0); Lymphocytes % 20.3 % (21.2-54.2); Mean Corpuscular HGB Conc 31.9 GM/DL (32-36); Mean Corpuscular Hemoglobin 29 PG (27-34); Mean Corpuscular Volume 90.5 FL (87-102); Mean Platelet Volume 11.2 FL (9.6-12.0); Monocytes # 0.2 10*3/uL (0.11-0.8); Monocytes % 7.3 % (1.7-12.7); Neutrophils # 2.1 10*3/uL (1.4-7.4); Neutrophils % 70.8 % (38.7-73.9); Platelet Count 51 T/CUMM (130-400); Red Blood Count 3.05 MC/CUMM (3.8-5.5); Red Cell Distribution Width 14.5 % (9.3-17.3)
[2017-10-13 06:26] LABS: Calcium 7.8 MG/DL (8.5-10.1); Osmolality,Calculated 275.8 MOS/KG (273-304); Potassium 4.1 MMOL/L (3.5-5.1)
[2017-10-13 06:49] LABS: Band Neutrophils 1 % (0-10); Eosinophils 1 % (0-10); Hypochromasia 1+; Lymphocytes 13 % (20-55); Ovalocytes Slight; Platelet Estimate Decreased; Segmented Neutrophils 79 % (50-85); Total Cells Counted 100
[2017-10-13 06:50] LABS: Giant Platelets Few; Microcytosis Slight
[2017-10-13] MEDS ORDERED: ASPIRIN EC 81 MG TABLET PO SCH (09:00)
[2017-10-13] MEDS: SODIUM CHLORIDE 0.9% 1,000 ML IV SCH ×3 (09:25→17:58)
[2017-10-13] MEDS: LISINOPRIL 5 MG TABLET PO SCH (09:25)
[2017-10-13] MEDS: ISOSORBIDE DINITRATE 10 MG TABLET PO SCH ×2 (09:25→21:16)
[2017-10-13] MEDS: FERROUS SULFATE 325 MG TABLET PO SCH (09:25)
[2017-10-13] MEDS: PANTOPRAZOLE 40 MG TABLET PO SCH (09:25)
[2017-10-13] MEDS: MEMANTINE 10 MG TABLET PO SCH ×2 (09:25→17:50)
[2017-10-13] MEDS: METOPROLOL SUCCINATE XL 25 MG TABLET PO SCH ×2 (09:25→21:16)
[2017-10-13] MEDS: INSULIN REGULAR 100 UNIT/ML SUBCUT SCH ×4 (09:57→21:20)
[2017-10-13] MEDS ORDERED: DEXTROSE 50% 25 GM/50 ML VIAL IV PRN (11:28)
[2017-10-13] MEDS ORDERED: GLUCAGON 1 MG VIAL IM PRN (11:28)
[2017-10-13] MEDS: LEVOFLOXACIN INJ 500 MG in PREMIX 1 EACH IV SCH (17:50)
[2017-10-13] MEDS: ROSUVASTATIN 10 MG TABLET PO SCH (21:16)
[2017-10-13] MEDS ORDERED: guaiFENesin 200 MG/10 ML UDCUP PO PRN (23:02)
[2017-10-14] MEDS: metroNIDAZOLE INJ 500 MG in PREMIX 1 EACH IV SCH ×3 (02:25→18:15)
[2017-10-14] MEDS: SODIUM CHLORIDE 0.9% 1,000 ML IV SCH ×3 (02:26→18:15)
[2017-10-14] MEDS: INSULIN REGULAR 100 UNIT/ML SUBCUT SCH ×4 (08:00→21:06)
[2017-10-14] MEDS: FERROUS SULFATE 325 MG TABLET PO SCH (09:00)
[2017-10-14] MEDS: ISOSORBIDE DINITRATE 10 MG TABLET PO SCH ×2 (09:00→21:04)
[2017-10-14] MEDS: METOPROLOL SUCCINATE XL 25 MG TABLET PO SCH ×2 (09:00→21:04)
[2017-10-14] MEDS: PANTOPRAZOLE 40 MG TABLET PO SCH (09:00)
[2017-10-14] MEDS: LISINOPRIL 5 MG TABLET PO SCH (09:00)
[2017-10-14] MEDS: MEMANTINE 10 MG TABLET PO SCH ×2 (09:01→17:10)
[2017-10-14] MEDS: LEVOFLOXACIN INJ 500 MG in PREMIX 1 EACH IV SCH (17:10)
[2017-10-14] MEDS ORDERED: ALBUTEROL/IPRATROPIUM 3 ML NEB RESP TX PRN (18:30)
[2017-10-14] MEDS: ROSUVASTATIN 10 MG TABLET PO SCH (21:04)
[2017-10-15] MEDS: metroNIDAZOLE INJ 500 MG in PREMIX 1 EACH IV SCH ×3 (02:04→18:04)
[2017-10-15 04:59] LABS: Hemoglobin 8.8 GM/DL (14.0-18.0); Immature Granulocytes % 3.9 %; Immature Granulocytes Absolute 0.08 #; Lymphocytes # 0.6 10*3/uL (1.4-4.0); Lymphocytes % 27.3 % (21.2-54.2); Mean Corpuscular HGB Conc 32.6 GM/DL (32-36); Mean Corpuscular Hemoglobin 29 PG (27-34); Mean Corpuscular Volume 87.4 FL (87-102); Mean Platelet Volume 10.3 FL (9.6-12.0); Monocytes # 0.3 10*3/uL (0.11-0.8); Monocytes % 13.2 % (1.7-12.7); Neutrophils # 1.1 10*3/uL (1.4-7.4); Neutrophils % 54.6 % (38.7-73.9); Platelet Count 66 T/CUMM (130-400); Red Blood Count 3.09 MC/CUMM (3.8-5.5); Red Cell Distribution Width 14.4 % (9.3-17.3); White Blood Count 2.1 T/CUMM (4-12)
[2017-10-15 05:20] LABS: Elliptocytes Few; Hypochromasia 1+; Microcytosis Slight; Platelet Estimate Decreased
[2017-10-15] MEDS: SODIUM CHLORIDE 0.9% 1,000 ML IV SCH ×2 (05:40→15:40)
[2017-10-15 05:43] LABS: Calcium 7.5 MG/DL (8.5-10.1); Osmolality,Calculated 277.7 MOS/KG (273-304); Potassium 3.7 MMOL/L (3.5-5.1)
[2017-10-15] MEDS: INSULIN REGULAR 100 UNIT/ML SUBCUT SCH ×4 (08:41→21:00)
[2017-10-15] MEDS: MEMANTINE 10 MG TABLET PO SCH ×2 (09:06→16:56)
[2017-10-15] MEDS: METOPROLOL SUCCINATE XL 25 MG TABLET PO SCH (09:06)
[2017-10-15] MEDS: PANTOPRAZOLE 40 MG TABLET PO SCH (09:06)
[2017-10-15] MEDS: FERROUS SULFATE 325 MG TABLET PO SCH (09:06)
[2017-10-15] MEDS: ISOSORBIDE DINITRATE 10 MG TABLET PO SCH ×2 (09:06→21:28)
[2017-10-15] MEDS: LISINOPRIL 5 MG TABLET PO SCH (09:06)
[2017-10-15] MEDS: ASPIRIN EC 81 MG TABLET PO SCH (12:28)
[2017-10-15] MEDS: LEVOFLOXACIN INJ 500 MG in PREMIX 1 EACH IV SCH (16:56)
[2017-10-15] MEDS: ROSUVASTATIN 10 MG TABLET PO SCH (21:29)
[2017-10-15] MEDS: METOPROLOL SUCCINATE XL 50 MG TABLET PO SCH (21:29)
[2017-10-16] MEDS: metroNIDAZOLE INJ 500 MG in PREMIX 1 EACH IV SCH ×2 (01:45→11:02)
[2017-10-16 05:34] LABS: Eosinophils % 0.8 % (0.00-10.9); Hematocrit 27.1 VOL% (42.0-52.0); Hemoglobin 8.9 GM/DL (14.0-18.0); Immature Granulocytes % 1.9 %; Immature Granulocytes Absolute 0.05 #; Lymphocytes # 0.6 10*3/uL (1.4-4.0); Lymphocytes % 24.7 % (21.2-54.2); Mean Corpuscular HGB Conc 32.8 GM/DL (32-36); Mean Corpuscular Hemoglobin 29 PG (27-34); Mean Corpuscular Volume 87.4 FL (87-102); Mean Platelet Volume 10.4 FL (9.6-12.0); Monocytes # 0.3 10*3/uL (0.11-0.8); Neutrophils # 1.6 10*3/uL (1.4-7.4); Neutrophils % 62.6 % (38.7-73.9); Platelet Count 83 T/CUMM (130-400); Red Cell Distribution Width 14.5 % (9.3-17.3); White Blood Count 2.6 T/CUMM (4-12)
[2017-10-16 05:53] LABS: Ovalocytes Few
[2017-10-16 05:54] LABS: Microcytosis Slight; Platelet Estimate Decreased
[2017-10-16 05:55] LABS: Hypochromasia 1+
[2017-10-16 06:05] LABS: Risk Ratio 4.6; VLDL CHOLESTEROL 21.2 MG/DL
[2017-10-16 06:19] LABS: Calcium 7.7 MG/DL (8.5-10.1); Osmolality,Calculated 279.4 MOS/KG (273-304); Potassium 3.7 MMOL/L (3.5-5.1)
[2017-10-16] MEDS: INSULIN REGULAR 100 UNIT/ML SUBCUT SCH ×2 (08:44→13:06)
[2017-10-16] MEDS: METOPROLOL SUCCINATE XL 50 MG TABLET PO SCH (09:15)
[2017-10-16] MEDS: ASPIRIN EC 81 MG TABLET PO SCH (09:15)
[2017-10-16] MEDS: LISINOPRIL 5 MG TABLET PO SCH (09:15)
[2017-10-16] MEDS: FERROUS SULFATE 325 MG TABLET PO SCH (09:15)
[2017-10-16] MEDS: PANTOPRAZOLE 40 MG TABLET PO SCH (09:15)
[2017-10-16] MEDS: MEMANTINE 10 MG TABLET PO SCH (09:25)
[2017-10-16] MEDS: ISOSORBIDE DINITRATE 10 MG TABLET PO SCH (10:56)
[2017-10-16] MEDS: SODIUM CHLORIDE 0.9% 1,000 ML IV SCH ×3 (13:03→13:05)
[2017-10-16 13:08] VITALS: BP 135/71
[2017-10-16] MEDS ORDERED: LISINOPRIL 5 MG TABLET PO SCH (13:29)
[2017-10-17] MEDS ORDERED: ISOSORBIDE DINITRATE 10 MG TABLET PO SCH (09:00)
== END 2017-10-16 15:41 | disposition home or self-care (01) | DRG 377 ==
LOC: EDUNIT# → EDBD → N.ED 11:38 → N.EDINP 14:47 → SUATTDRO 14:47 → N.TELEN 16:04
PROVIDERS: ATTEND Internal Medicine

== ENCOUNTER 2017-10-23 11:12 | Inpatient (IN) ==
[2017-10-23] MEDS ORDERED: LOPERAMIDE 2 MG CAPSULE PO STA (11:31)
[2017-10-23] MEDS ORDERED: metroNIDAZOLE INJ 500 MG in PREMIX 1 EACH IV STA (11:31)
[2017-10-23] MEDS ORDERED: METOCLOPRAMIDE 10 MG/2 ML VIAL IV STA (11:31)
[2017-10-23] MEDS ORDERED: ONDANSETRON 4 MG/2 ML VIAL IV STA (11:31)
[2017-10-23] MEDS ORDERED: metroNIDAZOLE 500 MG/100 ML PREMIX IV ONE (11:38)
[2017-10-23] MEDS ORDERED: LOPERAMIDE 2 MG CAPSULE ONE (11:38)
[2017-10-23] MEDS ORDERED: METOCLOPRAMIDE 10 MG/2 ML VIAL ONE (11:38)
[2017-10-23] MEDS ORDERED: ONDANSETRON 4 MG/2 ML VIAL ONE (11:38)
[2017-10-23 11:51] LABS: Basophils % 0.1 % (0.0-0.8); Eosinophils % 0.1 % (0.00-10.9); Hematocrit 34.4 VOL% (42.0-52.0); Hemoglobin 10.8 GM/DL (14.0-18.0); Immature Granulocytes % 0.7 %; Immature Granulocytes Absolute 0.09 #; Lymphocytes # 0.9 10*3/uL (1.4-4.0); Lymphocytes % 6.9 % (21.2-54.2); Mean Corpuscular HGB Conc 31.4 GM/DL (32-36); Mean Corpuscular Hemoglobin 28 PG (27-34); Mean Corpuscular Volume 90.5 FL (87-102); Mean Platelet Volume 10.2 FL (9.6-12.0); Monocytes % 6.9 % (1.7-12.7); Neutrophils # 11.7 10*3/uL (1.4-7.4); Neutrophils % 85.3 % (38.7-73.9); Platelet Count 149 T/CUMM (130-400); Red Cell Distribution Width 15.9 % (9.3-17.3); White Blood Count 13.7 T/CUMM (4-12)
[2017-10-23 12:01] LABS: INR 1.3; PT Patient Result 13.7 SECS; Partial Thromboplastin Time 29.4 SECS (0-40)
[2017-10-23 12:15] LABS: Alanine Aminotransferase 22 U/L (16-61); Albumin 2.7 G/DL (3.4-5.0); Alkaline Phosphatase 57 U/L (45-117); Aspartate Amino Transferase 45 U/L (0-37); Blood Urea Nitrogen 12 MG/DL (7-18); Calcium 7.9 MG/DL (8.5-10.1); Glucose 160 MG/DL (74-106); Sodium 138 MMOL/L (136-145); Total Protein 7.5 G/DL (6.4-8.3)
[2017-10-23 12:16] LABS: Amylase 59 U/L (25-115); Osmolality,Calculated 277.7 MOS/KG (273-304); Potassium 3.9 MMOL/L (3.5-5.1); Troponin I Only 0.036 NG/ML (0.00-0.045)
[2017-10-23 12:20] LABS: Ammonia 22 UMOL/L (11-32)
[2017-10-23] MEDS ORDERED: MAGNESIUM SULF RIDER 2 GM in PREMIX 1 EACH IV PRN (13:56)
[2017-10-23] MEDS ORDERED: ONDANSETRON 4 MG/2 ML VIAL IV PRN (13:56)
[2017-10-23] MEDS ORDERED: MAGNESIUM SULF RIDER 4 GM in PREMIX 1 EACH IV PRN (13:56)
[2017-10-23 15:08] LABS: Bilirubin,Direct 0.46 MG/DL (0.0-0.20); Bilirubin,Total 1.4 MG/DL (0.2-1.0)
[2017-10-23] MEDS ORDERED: SODIUM CHLORIDE 0.45% 500 ML IV ONE (16:26)
[2017-10-23] MEDS: CIPROFLOXACIN INJ 400 MG in PREMIX 1 EACH IV SCH (18:09)
[2017-10-23] MEDS: SODIUM CHLORIDE 0.45% 1,000 ML IV SCH (18:09)
[2017-10-23 19:09] LABS: Hepatitis A Ab IgM Quant 0.08 Index; Hepatitis A Ab IgM Result Negative (Negative); Hepatitis B Core IgM Quant 0.16 Index; Hepatitis B Core IgM Result Negative (Negative); Hepatitis B Surface Ag Quant 0.42 Index; Hepatitis B Surface Ag Result Negative (Negative); Hepatitis C Virus Ab Quant > 11.00 Index
[2017-10-23] MEDS ORDERED: ZINC OXIDE PASTE 113 GM TUBE TOP PRN (19:59)
[2017-10-23] MEDS: metroNIDAZOLE INJ 500 MG in PREMIX 1 EACH IV SCH (20:42)
[2017-10-23 22:58] LABS: Apearance,Urine CLEAR (Clear); Bilirubin,Urine Negative (Negative); Blood, Urine Small mg/dL (Negative); Glucose,Urine (UA) Negative (Negative); Ketones,Urine Negative (Negative); Mucus,Urine Occasional /LPF (Occasional); Nitrite,Urine Negative (Negative); Protein,Urine 100 MG/DL; RBC,Urine 5 /HPF (0-4); Squamous Epithelial Cell,Urine Occasional /HPF (0-10); Urine Color Yellow (Yellow); Urine Specific Gravity > 1.060 (1.001-1.035); Urine Urobilinogen < 2.0 EU/DL (0.2-1.0); WBC,Urine 1 /HPF (0-6)
[2017-10-24] MEDS: metroNIDAZOLE INJ 500 MG in PREMIX 1 EACH IV SCH ×4 (02:15→20:35)
[2017-10-24] MEDS: CIPROFLOXACIN INJ 400 MG in PREMIX 1 EACH IV SCH ×2 (04:36→17:51)
[2017-10-24 05:16] LABS: Hepatitis C Virus Ab Result POSITIVE (Negative)
[2017-10-24 06:02] LABS: Basophils % 0.4 % (0.0-0.8); Eosinophils % 0.2 % (0.00-10.9); Hematocrit 31.1 VOL% (42.0-52.0); Hemoglobin 9.8 GM/DL (14.0-18.0); Immature Granulocytes % 0.6 %; Immature Granulocytes Absolute 0.06 #; Lymphocytes % 9.2 % (21.2-54.2); Mean Corpuscular HGB Conc 31.5 GM/DL (32-36); Mean Corpuscular Hemoglobin 29 PG (27-34); Mean Corpuscular Volume 90.9 FL (87-102); Mean Platelet Volume 10.6 FL (9.6-12.0); Monocytes # 0.8 10*3/uL (0.11-0.8); Monocytes % 7.7 % (1.7-12.7); Neutrophils # 8.8 10*3/uL (1.4-7.4); Neutrophils % 81.9 % (38.7-73.9); Platelet Count 123 T/CUMM (130-400); Red Blood Count 3.42 MC/CUMM (3.8-5.5); Red Cell Distribution Width 15.9 % (9.3-17.3); White Blood Count 10.7 T/CUMM (4-12)
[2017-10-24 06:17] LABS: Bilirubin,Direct 0.35 MG/DL (0.0-0.20)
[2017-10-24 06:27] LABS: Albumin 2.4 G/DL (3.4-5.0); Bilirubin,Total 1.2 MG/DL (0.2-1.0); Calcium 7.9 MG/DL (8.5-10.1); Magnesium 1.7 MG/DL (1.8-2.4); Potassium 3.7 MMOL/L (3.5-5.1); Total Protein 6.1 G/DL (6.4-8.3)
[2017-10-24] MEDS: SODIUM CHLORIDE 0.45% 1,000 ML IV SCH (08:08)
[2017-10-24] MEDS: PANTOPRAZOLE 40 MG VIAL IV SCH (10:02)
[2017-10-25] MEDS: SODIUM CHLORIDE 0.45% 1,000 ML IV SCH ×2 (00:21→18:27)
[2017-10-25] MEDS: metroNIDAZOLE INJ 500 MG in PREMIX 1 EACH IV SCH ×4 (02:32→21:17)
[2017-10-25] MEDS: CIPROFLOXACIN INJ 400 MG in PREMIX 1 EACH IV SCH ×2 (05:29→18:29)
[2017-10-25] MEDS: PANTOPRAZOLE 40 MG VIAL IV SCH (08:34)
[2017-10-25] MEDS ORDERED: MAGNESIUM SULF RIDER 2 GM in PREMIX 1 EACH IV ONE (08:48)
[2017-10-25] MEDS ORDERED: DILTIAZEM 50 MG/10 ML VIAL IV ONE (09:11)
[2017-10-25] MEDS: FERROUS SULFATE 325 MG TABLET PO SCH (09:28)
[2017-10-25] MEDS: ASPIRIN EC 81 MG TABLET PO SCH (09:28)
[2017-10-25] MEDS: METOPROLOL SUCCINATE XL 50 MG TABLET PO SCH ×2 (09:28→21:17)
[2017-10-25] MEDS ORDERED: DILTIAZEM INJ 100 MG in SODIUM CHLORIDE 0.9% 100 ML IV SCH (09:30)
[2017-10-25] MEDS ORDERED: SIMETHICONE CHEW 80 MG TABLET PO PRN (11:37)
[2017-10-25] MEDS: AMIODARONE 200 MG TABLET PO SCH ×2 (12:00→21:17)
[2017-10-25] MEDS: MEMANTINE 10 MG TABLET PO SCH (17:18)
[2017-10-26] MEDS: metroNIDAZOLE INJ 500 MG in PREMIX 1 EACH IV SCH ×4 (02:05→22:11)
[2017-10-26] MEDS: SODIUM CHLORIDE 0.45% 1,000 ML IV SCH (03:05)
[2017-10-26 04:45] LABS: Basophils # 0.1 10*3/uL (0.0-0.2); Basophils % 0.6 % (0.0-0.8); Eosinophils # 0.1 10*3/uL (0.0-0.87); Eosinophils % 0.9 % (0.00-10.9); Hematocrit 33.6 VOL% (42.0-52.0); Hemoglobin 10.9 GM/DL (14.0-18.0); Immature Granulocytes % 0.5 %; Immature Granulocytes Absolute 0.04 #; Lymphocytes # 0.9 10*3/uL (1.4-4.0); Lymphocytes % 10.9 % (21.2-54.2); Mean Corpuscular HGB Conc 32.4 GM/DL (32-36); Mean Corpuscular Hemoglobin 29 PG (27-34); Mean Corpuscular Volume 88.2 FL (87-102); Mean Platelet Volume 10.4 FL (9.6-12.0); Monocytes # 0.8 10*3/uL (0.11-0.8); Monocytes % 9.1 % (1.7-12.7); Neutrophils # 6.7 10*3/uL (1.4-7.4); Platelet Count 155 T/CUMM (130-400); Red Blood Count 3.81 MC/CUMM (3.8-5.5); Red Cell Distribution Width 15.8 % (9.3-17.3); White Blood Count 8.6 T/CUMM (4-12)
[2017-10-26 05:19] LABS: Calcium 8.1 MG/DL (8.5-10.1); Magnesium 2.5 MG/DL (1.8-2.4); Osmolality,Calculated 274.1 MOS/KG (273-304); Potassium 4.1 MMOL/L (3.5-5.1)
[2017-10-26] MEDS: CIPROFLOXACIN INJ 400 MG in PREMIX 1 EACH IV SCH ×2 (05:35→16:43)
[2017-10-26] MEDS: FERROUS SULFATE 325 MG TABLET PO SCH (08:30)
[2017-10-26] MEDS: MEMANTINE 10 MG TABLET PO SCH ×2 (08:30→16:47)
[2017-10-26] MEDS: METOPROLOL SUCCINATE XL 50 MG TABLET PO SCH ×2 (08:30→22:11)
[2017-10-26] MEDS: ISOSORBIDE MONONITRATE 30 MG TABLET PO SCH (08:31)
[2017-10-26] MEDS: ASPIRIN EC 81 MG TABLET PO SCH (08:32)
[2017-10-26] MEDS: AMIODARONE 200 MG TABLET PO SCH ×2 (08:32→22:11)
[2017-10-26] MEDS: PANTOPRAZOLE 40 MG VIAL IV SCH (08:38)
[2017-10-27] MEDS: metroNIDAZOLE INJ 500 MG in PREMIX 1 EACH IV SCH ×2 (02:45→09:34)
[2017-10-27 03:20] LABS: Basophils # 0.1 10*3/uL (0.0-0.2); Basophils % 0.6 % (0.0-0.8); Eosinophils # 0.1 10*3/uL (0.0-0.87); Eosinophils % 0.9 % (0.00-10.9); Hemoglobin 10.4 GM/DL (14.0-18.0); Immature Granulocytes % 0.8 %; Immature Granulocytes Absolute 0.07 #; Lymphocytes # 1.2 10*3/uL (1.4-4.0); Lymphocytes % 13.9 % (21.2-54.2); Mean Corpuscular HGB Conc 32.5 GM/DL (32-36); Mean Corpuscular Hemoglobin 29 PG (27-34); Mean Corpuscular Volume 87.7 FL (87-102); Monocytes # 0.9 10*3/uL (0.11-0.8); Monocytes % 10.7 % (1.7-12.7); Neutrophils # 6.4 10*3/uL (1.4-7.4); Neutrophils % 73.1 % (38.7-73.9); Platelet Count 175 T/CUMM (130-400); Red Blood Count 3.65 MC/CUMM (3.8-5.5); Red Cell Distribution Width 15.9 % (9.3-17.3); White Blood Count 8.8 T/CUMM (4-12)
[2017-10-27] MEDS: CIPROFLOXACIN INJ 400 MG in PREMIX 1 EACH IV SCH (05:52)
[2017-10-27 06:27] LABS: Calcium 7.7 MG/DL (8.5-10.1); Magnesium 2.3 MG/DL (1.8-2.4); Osmolality,Calculated 271.2 MOS/KG (273-304); Potassium 4.1 MMOL/L (3.5-5.1)
[2017-10-27] MEDS: PANTOPRAZOLE 40 MG VIAL IV SCH (09:40)
[2017-10-27] MEDS: FERROUS SULFATE 325 MG TABLET PO SCH (09:40)
[2017-10-27] MEDS: AMIODARONE 200 MG TABLET PO SCH (09:40)
[2017-10-27] MEDS: ISOSORBIDE MONONITRATE 30 MG TABLET PO SCH (09:41)
[2017-10-27] MEDS: MEMANTINE 10 MG TABLET PO SCH ×2 (09:41→17:51)
[2017-10-27] MEDS: ASPIRIN EC 81 MG TABLET PO SCH (09:41)
[2017-10-27] MEDS: METOPROLOL SUCCINATE XL 50 MG TABLET PO SCH ×2 (09:41→21:28)
[2017-10-27] MEDS ORDERED: TUBERCULIN SKIN TEST 0.1 ML SYRINGE INTRADERM ONE (11:07)
[2017-10-27 11:44] LABS: Apearance,Urine CLEAR (Clear); Bilirubin,Urine Negative (Negative); Blood, Urine Negative (Negative); Glucose,Urine (UA) Negative (Negative); Hyaline Casts,Urine 4 /LPF (0-3); Ketones,Urine Negative (Negative); Mucus,Urine Few /LPF (Occasional); Nitrite,Urine Negative (Negative); Protein,Urine 30 MG/DL; RBC,Urine 2 /HPF (0-4); Squamous Epithelial Cell,Urine Occasional /HPF (0-10); Urine Color Amber (Yellow); Urine Specific Gravity 1.026 (1.001-1.035); Urine Urobilinogen < 2.0 EU/DL (0.2-1.0); WBC,Urine 4 /HPF (0-6)
[2017-10-27] MEDS: LACTOBACILLUS RHAMNOSUS GG CAPSULE PO SCH ×2 (15:19→21:27)
[2017-10-27] MEDS: NYSTATIN 500,000 UNIT/5 ML UDCUP SWISH/SWAL SCH ×2 (15:19→21:28)
[2017-10-27] MEDS: CHOLESTYRAMINE 4 GM PACK PO SCH ×2 (15:19→21:26)
[2017-10-28 04:50] LABS: Basophils # 0.1 10*3/uL (0.0-0.2); Basophils % 0.7 % (0.0-0.8); Eosinophils # 0.1 10*3/uL (0.0-0.87); Eosinophils % 1.1 % (0.00-10.9); Hematocrit 33.9 VOL% (42.0-52.0); Hemoglobin 10.6 GM/DL (14.0-18.0); Immature Granulocytes % 0.5 %; Immature Granulocytes Absolute 0.04 #; Lymphocytes # 1.2 10*3/uL (1.4-4.0); Lymphocytes % 14.6 % (21.2-54.2); Mean Corpuscular HGB Conc 31.3 GM/DL (32-36); Mean Corpuscular Hemoglobin 28 PG (27-34); Mean Corpuscular Volume 89.9 FL (87-102); Monocytes % 11.6 % (1.7-12.7); Neutrophils # 5.9 10*3/uL (1.4-7.4); Neutrophils % 71.5 % (38.7-73.9); Platelet Count 176 T/CUMM (130-400); Red Blood Count 3.77 MC/CUMM (3.8-5.5); Red Cell Distribution Width 15.7 % (9.3-17.3); White Blood Count 8.3 T/CUMM (4-12)
[2017-10-28 05:39] LABS: Albumin 2.4 G/DL (3.4-5.0); Bilirubin,Direct 0.27 MG/DL (0.0-0.20); Bilirubin,Indirect 0.9 MG/DL (0.0-1.0); Bilirubin,Total 1.2 MG/DL (0.2-1.0); Calcium 8.1 MG/DL (8.5-10.1); Magnesium 2.4 MG/DL (1.8-2.4); Osmolality,Calculated 274.1 MOS/KG (273-304); Potassium 4.2 MMOL/L (3.5-5.1); Total Protein 6.3 G/DL (6.4-8.3)
[2017-10-28] MEDS: FERROUS SULFATE 325 MG TABLET PO SCH (09:44)
[2017-10-28] MEDS: ISOSORBIDE MONONITRATE 30 MG TABLET PO SCH (09:44)
[2017-10-28] MEDS: ASPIRIN EC 81 MG TABLET PO SCH (09:44)
[2017-10-28] MEDS: NYSTATIN 500,000 UNIT/5 ML UDCUP SWISH/SWAL SCH ×3 (09:44→20:59)
[2017-10-28] MEDS: MEMANTINE 10 MG TABLET PO SCH ×2 (09:44→16:48)
[2017-10-28] MEDS: AMIODARONE 200 MG TABLET PO SCH (09:44)
[2017-10-28] MEDS: METOPROLOL SUCCINATE XL 50 MG TABLET PO SCH ×2 (09:44→20:59)
[2017-10-28] MEDS: LACTOBACILLUS RHAMNOSUS GG CAPSULE PO SCH ×2 (09:44→20:59)
[2017-10-28] MEDS: CHOLESTYRAMINE 4 GM PACK PO SCH ×2 (09:45→20:58)
[2017-10-28] MEDS: PANTOPRAZOLE 40 MG VIAL IV SCH (09:45)
[2017-10-29 05:26] LABS: Basophils # 0.1 10*3/uL (0.0-0.2); Basophils % 0.9 % (0.0-0.8); Eosinophils # 0.1 10*3/uL (0.0-0.87); Eosinophils % 1.2 % (0.00-10.9); Hematocrit 33.6 VOL% (42.0-52.0); Hemoglobin 10.6 GM/DL (14.0-18.0); Immature Granulocytes % 0.8 %; Immature Granulocytes Absolute 0.06 #; Lymphocytes # 1.1 10*3/uL (1.4-4.0); Lymphocytes % 14.2 % (21.2-54.2); Mean Corpuscular HGB Conc 31.5 GM/DL (32-36); Mean Corpuscular Hemoglobin 28 PG (27-34); Mean Corpuscular Volume 90.1 FL (87-102); Mean Platelet Volume 9.7 FL (9.6-12.0); Monocytes # 0.9 10*3/uL (0.11-0.8); Monocytes % 11.1 % (1.7-12.7); Neutrophils # 5.5 10*3/uL (1.4-7.4); Neutrophils % 71.8 % (38.7-73.9); Platelet Count 175 T/CUMM (130-400); Red Blood Count 3.73 MC/CUMM (3.8-5.5); Red Cell Distribution Width 16.2 % (9.3-17.3); White Blood Count 7.7 T/CUMM (4-12)
[2017-10-29 05:57] LABS: Calcium 8.1 MG/DL (8.5-10.1); Magnesium 2.3 MG/DL (1.8-2.4); Potassium 4.5 MMOL/L (3.5-5.1)
[2017-10-29 09:40] LABS: Neutrophils,Peritoneal Fluid 81 %; RBC,Peritoneal Fluid < 1 T/CUMM
[2017-10-29] MEDS: CHOLESTYRAMINE 4 GM PACK PO SCH ×2 (10:16→20:25)
[2017-10-29] MEDS: AMIODARONE 200 MG TABLET PO SCH (10:17)
[2017-10-29] MEDS: NYSTATIN 500,000 UNIT/5 ML UDCUP SWISH/SWAL SCH ×3 (10:17→20:25)
[2017-10-29] MEDS: MEMANTINE 10 MG TABLET PO SCH ×2 (10:18→16:52)
[2017-10-29] MEDS: METOPROLOL SUCCINATE XL 50 MG TABLET PO SCH ×2 (10:18→20:25)
[2017-10-29] MEDS: ISOSORBIDE MONONITRATE 30 MG TABLET PO SCH (10:19)
[2017-10-29] MEDS: ASPIRIN EC 81 MG TABLET PO SCH (10:20)
[2017-10-29] MEDS: FERROUS SULFATE 325 MG TABLET PO SCH (10:20)
[2017-10-29] MEDS: LACTOBACILLUS RHAMNOSUS GG CAPSULE PO SCH ×2 (10:23→20:25)
[2017-10-29] MEDS: PANTOPRAZOLE 40 MG VIAL IV SCH (10:48)
[2017-10-29] MEDS: cefTRIAXone 1,000 MG in SYRINGE 1 EACH IV SCH (13:05)
[2017-10-30 05:55] LABS: Basophils # 0.1 10*3/uL (0.0-0.2); Basophils % 0.7 % (0.0-0.8); Eosinophils # 0.1 10*3/uL (0.0-0.87); Eosinophils % 1.2 % (0.00-10.9); Hematocrit 34.8 VOL% (42.0-52.0); Hemoglobin 10.8 GM/DL (14.0-18.0); Immature Granulocytes % 0.8 %; Immature Granulocytes Absolute 0.06 #; Lymphocytes # 1.1 10*3/uL (1.4-4.0); Mean Corpuscular Hemoglobin 28 PG (27-34); Mean Corpuscular Volume 91.1 FL (87-102); Mean Platelet Volume 10.2 FL (9.6-12.0); Monocytes # 0.9 10*3/uL (0.11-0.8); Monocytes % 11.8 % (1.7-12.7); Neutrophils # 5.1 10*3/uL (1.4-7.4); Neutrophils % 70.5 % (38.7-73.9); Platelet Count 169 T/CUMM (130-400); Red Blood Count 3.82 MC/CUMM (3.8-5.5); Red Cell Distribution Width 16.1 % (9.3-17.3); White Blood Count 7.3 T/CUMM (4-12)
[2017-10-30 06:19] LABS: Calcium 7.9 MG/DL (8.5-10.1); Magnesium 2.1 MG/DL (1.8-2.4); Osmolality,Calculated 277.8 MOS/KG (273-304); Potassium 4.6 MMOL/L (3.5-5.1)
[2017-10-30] MEDS: NYSTATIN 500,000 UNIT/5 ML UDCUP SWISH/SWAL SCH (09:50)
[2017-10-30] MEDS: METOPROLOL SUCCINATE XL 50 MG TABLET PO SCH (09:51)
[2017-10-30] MEDS: CHOLESTYRAMINE 4 GM PACK PO SCH (09:51)
[2017-10-30] MEDS: LACTOBACILLUS RHAMNOSUS GG CAPSULE PO SCH (09:51)
[2017-10-30] MEDS: ASPIRIN EC 81 MG TABLET PO SCH (09:51)
[2017-10-30] MEDS: FERROUS SULFATE 325 MG TABLET PO SCH (09:51)
[2017-10-30] MEDS: AMIODARONE 200 MG TABLET PO SCH (09:51)
[2017-10-30] MEDS: MEMANTINE 10 MG TABLET PO SCH (09:52)
[2017-10-30] MEDS: ISOSORBIDE MONONITRATE 30 MG TABLET PO SCH (09:52)
[2017-10-30 11:42] VITALS: BP 121/62
[2017-10-30] MEDS: PANTOPRAZOLE 40 MG VIAL IV SCH (12:05)
[2017-10-30] MEDS: cefTRIAXone 1,000 MG in SYRINGE 1 EACH IV SCH (12:07)
== END 2017-10-30 15:00 | disposition swing bed (61) | DRG 438 ==
LOC: EDUNIT# → EDBD → N.ED 11:12 → N.EDINP 13:53 → N.3E 15:42 → N.CVR 10-25 09:54 → N.TELEN 10-25 20:03
PROVIDERS: ADMIT Internal Medicine; ATTEND Internal Medicine